=== PATIENT | male | born 1960 | race African-American/Black ===

== ENCOUNTER 2016-12-21 09:59 | Inpatient (IN) ==
[2016-12-21] MEDS ORDERED: ALBUTEROL/IPRATROPIUM 3 ML NEB RESP TX STA (10:32)
--- NOTE | 2016-12-21 10:57 | XRay Report ---
XR chest 2V Indication: Right-sided chest pain, cough Comparison: 25 April 2016 Findings: The heart and mediastinum are similar in size and configuration. The pulmonary vascularity is normal in caliber. There is increased right upper lung density with multiple air-fluid levels present within the right upper lobe bulla compared to previous study. The left upper lung increased density and scarring are similar to previous exam. No other lung infiltrates, effusions, pneumothorax or other abnormality is demonstrated. Impression: Increased right upper lung density with multiple air-fluid levels within the right upper lung bulla likely pneumonia/pulmonary abscess. PROCEDURE INTERPRETED AT [facility] DEPARTMENT OF RADIOLOGY Final Report Signed by: Dr. Noé Mortensen
[2016-12-21] MEDS ORDERED: PIPERACILLIN/TAZOBACTAM 3,375 MG in SODIUM CHLORIDE 0.9% 100 ML IV STA ×2 (11:29→11:55)
--- NOTE | 2016-12-21 11:41 | Emergency Department Note ---
IRossy Emily, am scribing for, and in the presence of, Beto Leigh MD 10:34. ILu Phillip K, MD, personally performed the services described in this documentation, ascribed by Anneliese Blair in my presence, and it is both accurate and complete 141 . Arrival - Arrival Chief Complaint: Chest Pain Stated Complaint: chest pain ED Nursing Triage Note: C/O HAVING PAIN ON THE RIGHT SIDE OF THE CHEST SINCE SAT., STATES THE PAIN IS WORSE COUGH AND INSPIRATION ., STATES ITS PAINFUL TO GET A DEEP BREATH IN., DENIES HAVING FEVER, DENIES HAVING NAUSEA., STATES HAD CHILLS ON SATURDAY AND SAT., DENIES PAIN RADIATING , CLEARING VOICE MORE THAN NORMAL., IN REMISSION FROM LUNG CANCER Mode of Arrival: Ambulatory Limitations: No Limitations Source: Patient - History of Present Illness HPI Narrative: Pt is a 56 y/o male who presents to ED with COPD of c/o sharp, right sided chest pain with DEL REAL that started on Saturday. Pt has associated sxs of pain with movement especially right arm raise, painful to deep inspiration, productive cough with clear sputum. Pt notes having subjective fever on Saturday with chills of hot and cold but resolved. Pt denies N/V or swelling in lower extremities. Pt has COPD and uses inhaler but no relief. He notes quitting smoking just a week ago. PMHx of Lung CA 5 yrs ago under supervision with Dr. Killian. He had CT chest last week with nml results. Onset (ago): day(s) Consistency: constant Severity: mild, moderate Severity scale (1-10): 4 Quality: sharp Allergies/Adverse Reactions: Allergies Allergy/AdvReac Type Severity Reaction Status Date / Time No Known Allergies Allergy Verified 12/21/16 10:06 Home Medications: Home Medications Medication Instructions Recorded Confirmed Type Albuterol Sulfate [Proair HFA] 2 puff INH DAILY PRN 07/28/15 12/21/16 History Aspirin [Ecotrin] 81 mg PO DAILY 04/25/16 12/21/16 History Ibuprofen [Ibuprofen] 800 mg Q6HR PRN 12/21/16 12/21/16 History Review of System - Review of System 12 point system: reviewed and no additional remarkable complaints except as stated - Review of System Constitutional: Present: chills (hot and cold with one day of fever), fever ( subjective once) Head/Ears/Nose/Throat: Absent: nasal drainage, sore throat Respiratory: Present: cough (productive but clear in color), respiratory distress Cardiovascular: Present: dyspnea on exertion. Absent: chest pain (chest wall pain on right side; worse with movement), orthopnea, syncope Gastrointestinal: Absent: abdominal pain, nausea, vomiting, diarrhea Musculoskeletal: Absent: arm pain, back pain, leg pain, neck pain Skin: Absent: rash Neurological: Absent: headache, confusion Psychiatric: Absent: anxiety Medical,Surgical,& Family Hx - Medical History Respiratory: History of: COPD, Lung Cancer (Left upper lobe surg) - Social History Smoking Status: Smoker, status unknown Frequency of Alcohol Use: Occasionally Type of Drug Use: None Functional capacity: independent ambulation Exam Vital Signs: Vital Signs Temperature 98.7 F 12/21/16 15:40 Pulse Rate 115 H 12/21/16 15:40 Respiratory Rate 20 12/21/16 15:40 Blood Pressure 116/73 12/21/16 15:40 O2 Sat by Pulse Oximetry 92 L 12/21/16 15:40 - General General appearance: alert, in no apparent distress - Head Head exam: Present: atraumatic, normocephalic - Eye Eye exam: Present: PERRL, EOMI - ENT ENT exam: Present: mucous membranes moist. Absent: mucous membranes dry - Chest Chest inspection: Present: symmetric chest wall rise, tenderness (reproducible, right anterior chest wall pain). Absent: rash - Respiratory Respiratory exam: Present: wheezes (expiratory). Absent: respiratory distress - Cardiovascular Cardiovascular exam: Present: tachycardia, normal heart sounds - Extremities Exam Extremities exam: Present: full ROM. Absent: tenderness, pedal edema, calf tenderness - Neurological Exam Neurological exam: Present: alert, oriented X3, CN II-XII intact. Absent: motor sensory deficit - Psychiatric Psychiatric exam: Present: normal affect, normal mood - Skin Skin exam: Present: warm, dry, intact, normal color. Absent: rash Results - Labs CBC & BMP: 12/21/16 11:41 12/21/16 11:41 Lab Results: I have reviewed the patients labs - EKG EKG results: interpreted by LUZ MARINA, sinus rhythm ([facility] nonspecific ST-T changes) - Diagnostic Findings Procedure: Chest x-ray: report reviewed by me (Increased right upper lung density with multiple air-fluid levels within right upper bulba likely PNA/ pulmonary abscess.) Disposition Clinical Impression: Right upper lobe pneumonia, Possible right pulmonary abscess Case discussed with: patient Disposition: Still a Patient Condition: Stable
[2016-12-21 11:54] LABS: Basophils % 0.2 % (0.0-0.8); Eosinophils # 0.6 10*3/uL (0.0-0.87); Eosinophils % 3.3 % (0.00-10.9); Hematocrit 46.2 VOL% (42.0-52.0); Hemoglobin 16.3 GM/DL (14.0-18.0); Immature Granulocytes % 0.6 %; Immature Granulocytes Absolute 0.11 #; Lymphocytes # 0.9 10*3/uL (1.4-4.0); Lymphocytes % 4.8 % (21.2-54.2); Mean Corpuscular HGB Conc 35.3 GM/DL (32-36); Mean Corpuscular Hemoglobin 34 PG (27-34); Mean Corpuscular Volume 97.1 FL (87-102); Mean Platelet Volume 12.4 FL (9.6-12.0); Monocytes # 1.6 10*3/uL (0.11-0.8); Monocytes % 8.2 % (1.7-12.7); Neutrophils # 16.1 10*3/uL (1.4-7.4); Neutrophils % 82.9 % (38.7-73.9); Platelet Count 101 T/CUMM (130-400); Red Blood Count 4.76 MC/CUMM (3.8-5.5); Red Cell Distribution Width 11.5 % (9.3-17.3); White Blood Count 19.4 T/CUMM (4-12)
[2016-12-21] MEDS ORDERED: PIPERACILLIN/TAZOBACTAM 3,375 MG VIAL IV ONE (12:06)
--- NOTE | 2016-12-21 12:14 | CT Report ---
CT chest pulmonary embolism Indication: Shortness of breath Comparison: 12 December 2016 Technique: Axial CT imaging of the chest is performed with intravenous contrast. Contrast dose is 80 cc of Omnipaque 350. Findings: No thrombus or other abnormality is identified in the pulmonary arteries or veins. The pulmonary vessel caliber is within normal limits. The heart, mediastinum and great vessels appear within normal limits. Fluid collection and chronic airspace density in the left upper lung with surgical changes are stable when compared to previous study. There is new airspace density and the right upper lobe with fluid levels present in the bulla that was not seen on previous exam. No effusion or pneumothorax is present. Impression: No evidence of pulmonary thromboembolism. Right upper lung airspace density likely pneumonia. Fluid within multiple bulla may indicate infection. This CT exam was performed using one or more the following dose reduction techniques: Automated exposure control, adjustment of the MA and/or KV according to patient size, or use of iterative reconstruction technique. PROCEDURE INTERPRETED AT [facility] DEPARTMENT OF RADIOLOGY Final Report Signed by: Dr. Noé Mortensen
[2016-12-21 12:21] LABS: Albumin 2.9 G/DL (3.4-5.0); Bilirubin,Total 0.9 MG/DL (0.2-1.0); Magnesium 2.3 MG/DL (1.8-2.4); Osmolality,Calculated 263.5 MOS/KG (273-304); Potassium 5.9 MMOL/L (3.5-5.1); Total Protein 8.2 G/DL (6.4-8.3)
[2016-12-21 12:47] LABS: Band Neutrophils 1 % (0-10); Eosinophils 4 % (0-10); Hypochromasia Slight; Lymphocytes 8 % (20-55); Platelet Estimate Decreased; Segmented Neutrophils 80 % (50-85); Total Cells Counted 100
[2016-12-21] MEDS ORDERED: traMADol 50 MG TABLET PO PRN (12:47)
[2016-12-21] MEDS ORDERED: TEMAZEPAM 7.5 MG CAPSULE PO PRN (12:47)
[2016-12-21] MEDS ORDERED: chlorproMAZINE INJ 50 MG in SODIUM CHLORIDE 0.9% 100 ML IV PRN (12:47)
[2016-12-21] MEDS ORDERED: LOPERAMIDE 2 MG CAPSULE PO PRN ×2 (12:47)
[2016-12-21] MEDS ORDERED: BENZTROPINE 2 MG/2 ML AMP IV PRN (12:47)
[2016-12-21] MEDS ORDERED: ALPRAZolam 0.25 MG TABLET PO PRN (12:47)
[2016-12-21] MEDS ORDERED: MAGNESIUM HYDROXIDE SUSP 30 ML UDCUP PO PRN (12:47)
[2016-12-21] MEDS ORDERED: MYLANTA/LIDO VISC 2:1 300 ML BOTTLE SWISH/SPIT PRN (12:47)
[2016-12-21] MEDS ORDERED: ONDANSETRON 4 MG/2 ML VIAL IV PRN (12:47)
[2016-12-21] MEDS ORDERED: chlorproMAZINE INJ 25 MG in SODIUM CHLORIDE 0.9% 100 ML IV PRN (12:47)
[2016-12-21] MEDS ORDERED: chlorproMAZINE 25 MG TABLET PO PRN (12:47)
[2016-12-21] MEDS ORDERED: MYLANTA/LIDO VISC 2:1 300 ML BOTTLE SWISH/SWAL PRN (12:47)
[2016-12-21] MEDS ORDERED: LACTULOSE 20 GM/30 ML UDCUP PO PRN (12:47)
[2016-12-21] MEDS ORDERED: ALUMINUM/MAGNES/SIMETH MAX STR 30 ML UDCUP PO PRN (12:47)
[2016-12-21] MEDS ORDERED: diphenhydrAMINE CAP 25 MG CAPSULE PO PRN (12:47)
[2016-12-21] MEDS ORDERED: PROMETHAZINE INJ 25 MG in SODIUM CHLORIDE 0.9% 50 ML IV PRN (12:47)
[2016-12-21] MEDS: guaiFENesin 200 MG/10 ML UDCUP PO PRN ×2 (13:28→18:03)
--- NOTE | 2016-12-21 14:01 | Pulmonology Consult Note ---
Assessment and Plan (1) Pneumonia Status: Acute Assessment and plan: The patient has been ill for 3 days with fever and sweats and pleurisy. He now has an extensive right upper lobe pneumonia. This is likely a bacterial pneumonia. He will be started on IV antibiotics. Current Visit: Yes Qualifiers: Laterality: right Lung location: upper lobe of lung (2) Emphysema of lung Status: Acute Assessment and plan: The patient does have bullous disease in his upper lobe and this makes for the cavitary appearance of the infiltrate. Current Visit: Yes (3) History of lung cancer Status: Acute Assessment and plan: The patient has scarring of the left upper lobe from previous cancer. He seems to be in remission. Current Visit: Yes History of Present Illness Chief complaint: Pneumonia History of present illness: Mr. Barton is a 56 year old black male that has a history of having left upper lobe lung cancer in the past. He had previous treatment including chemotherapy and radiation therapy and has been in remission for 4 years. He does have a history of having COPD and emphysema also. He states he was doing fairly well until 3 days ago. He had some chills and fever and then had a significant sweat. After that he started having right upper chest pleurisy. He has been coughing up some white sputum. He continues to feel short of breath and weak and came to the emergency room. He has been found to have extensive right upper lobe infiltrate. He is admitted for further treatment. He says he does use of inhalers as needed. He has been a lifelong smoker. Home Medications Medication Instructions Recorded Confirmed Type Albuterol Sulfate [Proair HFA] 2 puff INH DAILY PRN 07/28/15 12/21/16 History Aspirin [Ecotrin] 81 mg PO DAILY 04/25/16 12/21/16 History Ibuprofen [Ibuprofen] 800 mg Q6HR PRN 12/21/16 12/21/16 History Allergies Allergy/AdvReac Type Severity Reaction Status Date / Time No Known Allergies Allergy Verified 12/21/16 10:06 - Constitutional Constitutional: Present: chills, fatigue, fever(s). Absent: weight loss - EENT Eyes: Absent: loss of vision Ears: Absent: decreased hearing Nose, mouth and throat: Absent: dysphagia, headache(s), sinus pressure - Cardiovascular Cardiovascular: Present: chest pain at rest, dyspnea on exertion. Absent: orthopnea, palpitations, PND - Respiratory Respiratory: Present: cough, dyspnea, pain on inspiration, change in phlegm color. Absent: hemoptysis - Gastrointestinal Gastrointestinal: Absent: abdominal pain, change in bowel habits, dysphagia, nausea, vomiting - Genitourinary Genitourinary: Absent: difficulty urinating, dysuria, hematuria, urinary frequency - Musculoskeletal Musculoskeletal: Absent: arthralgias, muscle weakness - Neurological Neurological: Absent: abnormal speech, focal weakness, paresthesias Exam (Pulmonay) H&P - Constitutional Vitals: Period Temp Pulse Resp BP Sys/Peace Pulse Ox Last 24 Hr 98.5 F 106 20 117/75 97 General appearance: normal weight, no acute distress (The patient looks comfortable lying in bed.) - Head Head exam: Present: normal inspection, normocephalic - Eye Eye exam: Present: EOMI. Absent: scleral icterus Pupils: Present: CAMI - ENT ENT exam: Present: normal exam - Neck Neck exam: Absent: lymphadenopathy, thyromegaly - Respiratory Respiratory exam: Present: decreased breath sounds (He does have some crackles in the right upper lung field), rales, rhonchi - Cardiovascular Cardiovascular exam: Present: regular rate and rhythm. Absent: gallop, systolic murmur - GI/Abdominal GI/Abdominal exam: Present: normal bowel sounds, soft. Absent: organomegaly, tenderness - Extremities Exam Extremities exam: Absent: calf tenderness, edema - Back Exam Back exam: Present: normal inspection - Neurological Exam Neurological exam: Present: alert, oriented X3, CN II-XII intact. Absent: motor sensory deficit - Psychiatric Psychiatric exam: Present: normal affect - Skin Skin exam: Present: warm, dry Medical,Surgical,& Family Hx - Medical History Respiratory: History of: COPD, Lung Cancer (Left upper lobe surg) - Family History Family History: Reports;: Family Hypertension (brother and sister) - Social History Smoking Status: Former smoker Frequency of Alcohol Use: Occasionally Type of Drug Use: None Results - Labs CBC & BMP: 12/21/16 11:41 12/21/16 11:41 - Diagnostic Findings Procedure: Chest x-ray: image reviewed by me, report reviewed by me (Chest x- ray shows scarring and volume loss of the left upper lobe that is chronic. There is an extensive right upper lobe infiltrate now.), CT - chest: image reviewed by me, report reviewed by me (CT shows extensive bullous disease with a new right upper lobe infiltrate. The left upper lobe scarring and has significant volume loss.)
--- NOTE | 2016-12-21 14:44 | EKG Report ---
Stationary ECG Study [facility] Test Date: 12/21/2016 10:19:04 AM Pat Name: BRAIN LAUGHLIN Department: Room: 433 Gender: M Director Investor Relations: : 1960 Requested by: Beto Feng Order Number: [id number] Reading MD: YVAN NORTON Intervals [place] Rate: 87 P: 78 NV: 157 QRS: 31 QRSD: 103 T: 91 QT: 331 QTc: 376 Interpretive Statements SINUS RHYTHM POSSIBLE LEFT ATRIAL ENLARGEMENT POSSIBLE LEFT VENTRICULAR HYPERTROPHY POOR QUALITY BASELINE Electronically Signed On 12-21-16 19:54:01 CDT by YVAN NORTON [email or web address]
[2016-12-21] MEDS: SODIUM CHLORIDE 0.9% 1,000 ML IV SCH (15:11)
[2016-12-21] MEDS: MORPHINE 2 MG/1 ML SYRINGE IV PRN ×2 (15:32→18:04)
[2016-12-21] MEDS: LEVOFLOXACIN INJ 500 MG in PREMIX 1 EACH IV SCH (16:27)
[2016-12-21] MEDS: ALBUTEROL/IPRATROPIUM 3 ML NEB RESP TX SCH (19:41)
[2016-12-21] MEDS ORDERED: PIPERACILLIN/TAZOBACTAM 3,375 MG in SODIUM CHLORIDE 0.9% 100 ML IV SCH (20:00)
[2016-12-21] MEDS: PIPERACILLIN/TAZOBACTAM 3,375 MG in SODIUM CHLORIDE 0.9% 100 ML IV SCH (21:16)
[2016-12-22] MEDS: ALBUTEROL/IPRATROPIUM 3 ML NEB RESP TX SCH ×4 (01:41→19:49)
[2016-12-22] MEDS: SODIUM CHLORIDE 0.9% 1,000 ML IV SCH ×2 (03:14→10:55)
[2016-12-22 03:54] LABS: Apearance,Urine CLEAR (Clear); Bilirubin,Urine Negative (Negative); Blood, Urine Small mg/dL (Negative); Glucose,Urine (UA) Negative (Negative); Ketones,Urine Negative (Negative); Nitrite,Urine Negative (Negative); Protein,Urine Negative; Urine Color Yellow (Yellow); Urine Specific Gravity 1.006 (1.001-1.035); Urine Urobilinogen < 2.0 EU/DL (0.2-1.0); WBC,Urine 1 /HPF (0-6)
[2016-12-22] MEDS: PIPERACILLIN/TAZOBACTAM 3,375 MG in SODIUM CHLORIDE 0.9% 100 ML IV SCH ×3 (03:55→20:37)
--- NOTE | 2016-12-22 07:08 | Oncology History&Physical ---
Assessment and Plan - Time spent with patient Time spent with patient: Greater than 30 minutes (1) Right upper lobe pneumonia Status: Acute Assessment and plan: We will continue with his current antibiotics. He has seemed to improve well overnight. I told him that he will likely be over 2-3 days. I am unsure why he is on the oncology service but we will continue this for now. Current Visit: Yes (2) History of lung cancer Status: Acute Current Visit: Yes History of Present Illness History of present illness: Mr. Barton is a 56 year old male with a history of left-sided lung cancer that completed treatment 4-5 years ago and has been followed with observation by Dr. Killian every 6 months in clinic. He presented to the emergency room yesterday complaining of cough, fatigue, and increased dark sputum production. He was found to have a right upper lobe pneumonia. He was admitted to the oncology service to manage this. Pulmonary is seeing him. He is on Levaquin and Zosyn at this time. He states he is feeling much better this morning. He denies any fever. Home Medications Medication Instructions Recorded Confirmed Type Albuterol Sulfate [Proair HFA] 2 puff INH DAILY PRN 07/28/15 12/21/16 History Aspirin [Ecotrin] 81 mg PO DAILY 04/25/16 12/21/16 History Ibuprofen [Ibuprofen] 800 mg Q6HR PRN 12/21/16 12/21/16 History Allergies Allergy/AdvReac Type Severity Reaction Status Date / Time No Known Allergies Allergy Verified 12/21/16 10:06 Medical,Surgical,& Family Hx - Medical History Respiratory: History of: COPD, Lung Cancer (Left upper lobe surg) - Family History Family History: Reports;: Family Hypertension (brother and sister) - Social History Smoking Status: Smoker, status unknown Frequency of Alcohol Use: Occasionally Type of Drug Use: None 12 point system: reviewed and no additional remarkable complaints except as stated - Constitutional Constitutional: Present: fatigue. Absent: chills, fever(s) - Respiratory Respiratory: Present: cough. Absent: dyspnea, hemoptysis, wheezing Exam - Constitutional Vitals: Period Temp Pulse Resp BP Sys/Peace Pulse Ox Last 24 Hr 98.2 F-98.7 F 98-122 16-20 116-120/72-75 91-99 General appearance: normal weight, no acute distress - Head Head Exam: Present: normocephalic, atraumatic - Eye Eye Exam: Present: EOMI Pupils: Present: PERRL - ENT ENT exam: Present: normal exam, normal oropharynx - Neck Neck exam: Absent: lymphadenopathy, thyromegaly - Respiratory Respiratory exam: Present: CTAB. Absent: decreased breath sounds, wheezes - Cardiovascular Cardiovascular exam: Present: RRR. Absent: irregular rhythm, JVD - GI/Abdominal GI/Abdominal exam: Present: soft. Absent: ascites, distended, firm, mass - Neurological Exam Neurological exam: Present: alert, oriented X3 - Psychiatric Psychiatric exam: Present: normal affect, normal mood - Skin Skin exam: Present: warm, dry Results - Labs CBC & BMP: 12/21/16 11:41 12/21/16 11:41 Lab Results: I have reviewed the past 24 hour labs
--- NOTE | 2016-12-22 09:18 | Pulmonology Progress Note ---
Pulmonary - PN: Subj Interval history: The patient is a 56-year-old black man that has had a history of left upper lobe lung cancer and COPD. He comes in with a few days of pleurisy coughing and congestion and has an extensive right upper lobe community-acquired pneumonia. His cultures are negative so far. He had a temp of around 100 last night. He says he feels better with less pleurisy. He still has a lot of cough but no increased shortness of breath. Overall he appears to be stable. Exam (Progress Note) - Constitutional Vitals: Period Temp Pulse Resp BP Sys/Peace Pulse Ox Last 24 Hr 98.2 F-100.0 F 95-122 16-20 116-125/68-75 91-99 Exam: General appearance: normal weight, no acute distress (The patient is walking around and looks comfortable.) - Head Head exam: Present: normal inspection, normocephalic - Eye Eye exam: Present: EOMI. Absent: scleral icterus Pupils: Present: CAMI - ENT ENT exam: Present: normal exam - Neck Neck exam: Absent: lymphadenopathy, thyromegaly - Respiratory Respiratory exam: Present: He has fairly good breath sounds bilaterally and still has some mild rhonchi in the right upper lobe. Otherwise he is moving air fairly well. - Cardiovascular Cardiovascular exam: Present: regular rate and rhythm. Absent: gallop, systolic murmur - GI/Abdominal GI/Abdominal exam: Present: normal bowel sounds, soft. Absent: organomegaly, tenderness - Extremities Exam Extremities exam: Absent: calf tenderness, edema, he has no signs of phlebitis. - Back Exam Back exam: Present: normal inspection - Neurological Exam Neurological exam: Present: alert, oriented X3, CN II-XII intact. Absent: motor sensory deficit - Psychiatric Psychiatric exam: Present: normal affect - Skin Skin exam: Present: warm, dry Results - Labs CBC & BMP: 12/21/16 11:41 12/21/16 11:41 Assessment and Plan (1) Pneumonia Status: Acute Assessment and plan: The patient has been ill for 3 days with fever and sweats and pleurisy. He now has an extensive right upper lobe pneumonia. This is likely a bacterial pneumonia. He will be started on IV antibiotics. He is tolerating everything okay so far Current Visit: Yes Qualifiers: Laterality: right Lung location: upper lobe of lung (2) Emphysema of lung Status: Acute Assessment and plan: The patient does have bullous disease in his upper lobe and this makes for the cavitary appearance of the infiltrate. His breathing seems to be stable at present. Current Visit: Yes (3) History of lung cancer Status: Acute Assessment and plan: The patient has scarring of the left upper lobe from previous cancer. He seems to be in remission. Current Visit: Yes
[2016-12-22] MEDS: LEVOFLOXACIN INJ 500 MG in PREMIX 1 EACH IV SCH (15:38)
[2016-12-22] MEDS: guaiFENesin/CODEINE 5 ML LIQUID PO PRN ×2 (15:50→20:32)
[2016-12-22] MEDS: ACETAMINOPHEN 325 MG TABLET PO PRN (16:08)
[2016-12-23] MEDS: ALBUTEROL/IPRATROPIUM 3 ML NEB RESP TX SCH ×4 (00:30→19:33)
[2016-12-23 03:46] LABS: Calcium 8.4 MG/DL (8.5-10.1); Magnesium 1.8 MG/DL (1.8-2.4); Osmolality,Calculated 273.7 MOS/KG (273-304); Potassium 4.3 MMOL/L (3.5-5.1)
[2016-12-23] MEDS: PIPERACILLIN/TAZOBACTAM 3,375 MG in SODIUM CHLORIDE 0.9% 100 ML IV SCH ×3 (03:51→21:11)
[2016-12-23] MEDS: SODIUM CHLORIDE 0.9% 1,000 ML IV SCH ×2 (03:56→21:27)
[2016-12-23 03:57] LABS: Basophils % 0.1 % (0.0-0.8); Eosinophils # 0.7 10*3/uL (0.0-0.87); Eosinophils % 3.9 % (0.00-10.9); Hematocrit 38.4 VOL% (42.0-52.0); Hemoglobin 13.7 GM/DL (14.0-18.0); Immature Granulocytes % 1.8 %; Immature Granulocytes Absolute 0.32 #; Lymphocytes # 1.1 10*3/uL (1.4-4.0); Lymphocytes % 6.2 % (21.2-54.2); Mean Corpuscular HGB Conc 35.7 GM/DL (32-36); Mean Corpuscular Hemoglobin 34 PG (27-34); Mean Corpuscular Volume 95.8 FL (87-102); Mean Platelet Volume 11.9 FL (9.6-12.0); Monocytes % 11.4 % (1.7-12.7); Neutrophils # 13.6 10*3/uL (1.4-7.4); Neutrophils % 76.6 % (38.7-73.9); Platelet Count 129 T/CUMM (130-400); Red Blood Count 4.01 MC/CUMM (3.8-5.5); Red Cell Distribution Width 11.7 % (9.3-17.3); White Blood Count 17.8 T/CUMM (4-12)
[2016-12-23] MEDS: ACETAMINOPHEN 325 MG TABLET PO PRN (04:40)
--- NOTE | 2016-12-23 08:56 | Pulmonology Progress Note ---
Pulmonary - PN: Subj Interval history: The patient is a 56-year-old black man that has had a history of left upper lobe lung cancer and COPD. He comes in with a few days of pleurisy coughing and congestion and has an extensive right upper lobe community-acquired pneumonia. Patient had a temperature to 102 last night but he says he is feeling better today. He is having less pleurisy and is not short of breath. He has not been able to cough up much sputum. He says he is tolerating his antibiotics okay. His cultures are still negative so far. Exam (Progress Note) - Constitutional Vitals: Period Temp Pulse Resp BP Sys/Peace Pulse Ox Last 24 Hr 97.3 F-103.2 F 89-110 16-20 116-131/66-83 90-100 Exam: General appearance: normal weight, no acute distress (The patient is walking around and looks comfortable. He is not having any respiratory distress.) - Head Head exam: Present: normal inspection, normocephalic - Eye Eye exam: Present: EOMI. Absent: scleral icterus Pupils: Present: CAMI - ENT ENT exam: Present: normal exam - Neck Neck exam: Absent: lymphadenopathy, thyromegaly - Respiratory Respiratory exam: Present: He has fairly good breath sounds bilaterally and is not really wheezing any. He does have some crackles in his right upper lung field. - Cardiovascular Cardiovascular exam: Present: regular rate and rhythm. Absent: gallop, systolic murmur - GI/Abdominal GI/Abdominal exam: Present: normal bowel sounds, soft. Absent: organomegaly, tenderness - Extremities Exam Extremities exam: Absent: calf tenderness, edema, he has no signs of phlebitis. - Back Exam Back exam: Present: normal inspection - Neurological Exam Neurological exam: Present: alert, oriented X3, CN II-XII intact. Absent: motor sensory deficit - Psychiatric Psychiatric exam: Present: normal affect - Skin Skin exam: Present: warm, dry Results - Labs CBC & BMP: 12/23/16 02:18 12/23/16 02:18 Assessment and Plan (1) Pneumonia Status: Acute Assessment and plan: The patient has been ill for 3 days with fever and sweats and pleurisy. He now has an extensive right upper lobe pneumonia. This is likely a bacterial pneumonia. He will be started on IV antibiotics. He still is having some fever but clinically he seems better. Will check a chest x-ray tomorrow. Current Visit: Yes Qualifiers: Laterality: right Lung location: upper lobe of lung (2) Emphysema of lung Status: Acute Assessment and plan: The patient does have bullous disease in his upper lobe and this makes for the cavitary appearance of the infiltrate. His breathing seems to be stable at present. Current Visit: Yes (3) History of lung cancer Status: Acute Assessment and plan: The patient has scarring of the left upper lobe from previous cancer. He seems to be in remission. Current Visit: Yes
[2016-12-23] MEDS: guaiFENesin/CODEINE 5 ML LIQUID PO PRN ×3 (09:01→21:10)
--- NOTE | 2016-12-23 09:48 | Oncology Progress Note ---
Assessment and Plan (1) History of lung cancer Status: Acute Current Visit: Yes (2) Pneumonia Status: Acute Current Visit: Yes Qualifiers: Laterality: right Lung location: upper lobe of lung Oncology Subjective PN Interval history: Mr. Mccarthy is to be doing better today. He remained febrile throughout the day yesterday and early this morning but clinically he is improving. He is on broad -spectrum antimicrobial agents for likely right upper lobe bacterial pneumonia. We will not make any changes to his antibiotics at this time. Pulmonary is in agreement with this. I encouraged him to get out of bed today and ambulate. Anticipate he will at least need to be in the hospital for another day or 2. Exam - Constitutional Vitals: Period Temp Pulse Resp BP Sys/Peace Pulse Ox Last 24 Hr 97.3 F-103.2 F 89-110 16-20 116-131/66-83 90-100 General appearance: normal weight, no acute distress - Head Head Exam: Present: normocephalic, atraumatic - Eye Eye Exam: Present: EOMI Pupils: Present: PERRL - Neck Neck exam: Absent: lymphadenopathy, thyromegaly - Respiratory Respiratory exam: Present: other (Coarse breath sounds bilaterally). Absent: wheezes - Cardiovascular Cardiovascular exam: Present: tachycardia. Absent: irregular rhythm, JVD - GI/Abdominal GI/Abdominal exam: Present: soft. Absent: ascites, distended, mass - Neurological Exam Neurological exam: Present: alert, oriented X3 - Psychiatric Psychiatric exam: Present: normal affect, normal mood - Skin Skin exam: Present: warm, dry Results - Labs CBC & BMP: 12/23/16 02:18 12/23/16 02:18 Lab Results: I have reviewed the past 24 hour labs
[2016-12-23] MEDS: LEVOFLOXACIN INJ 500 MG in PREMIX 1 EACH IV SCH (15:42)
[2016-12-24] MEDS: ALBUTEROL/IPRATROPIUM 3 ML NEB RESP TX SCH ×4 (01:23→19:25)
[2016-12-24] MEDS: PIPERACILLIN/TAZOBACTAM 3,375 MG in SODIUM CHLORIDE 0.9% 100 ML IV SCH ×3 (04:42→20:17)
--- NOTE | 2016-12-24 08:41 | XRay Report ---
XR chest 2V Date: 12/24/2016 4:00 AM History: Pneumonia Comparison: 12/21/2016 Technique: PA and lateral chest Findings: The heart remains small and compressed by the over expanded lungs. Extensive cystic/cavitary pathology in the upper lobes, especially the right. Additional progressive parenchymal findings in the right middle lower lung zone and at the left lung base. Upward retraction of the myranda with no acute osseous findings. Impression: Bullous emphysema with persistent extensive cystic/cavitary pathology in the upper lobes, especially the right. Additional progressive infiltration in the right middle lower lung zone and at the left lung base. PROCEDURE INTERPRETED AT [facility] DEPARTMENT OF RADIOLOGY Final Report Signed by: Dr. Sintia Houser
--- NOTE | 2016-12-24 08:51 | Oncology Progress Note ---
Oncology Subjective PN Interval history: Patient with history of lung cancer, bullous emphysema, and right upper lobe pneumonia. He is improved after 72 hours of hospitalization. He is receiving Zosyn and Levaquin. He still has some cough which is nonproductive at this time. He did report some green sputum initially. His temperature curve seems to be down by his report. Blood cultures are negative. Breath sounds are notable for decreased airflow bilaterally without wheezes or crackles at the present time. Chest x-ray images reviewed by me with chronic scarring in the left upper lobe and extensive bullae in the right lung with an air-fluid level present. I do not think there is anything we should do from a percutaneous or interventional standpoint but continue aggressive antimicrobials. I discussed with the patient that he will likely be hospitalized for the majority of this week. Exam - Constitutional Vitals: Period Temp Pulse Resp BP Sys/Peace Pulse Ox Last 24 Hr 98.4 F-100.8 F 86-120 16-20 117-126/64-71 90-100 Results - Labs CBC & BMP: 12/23/16 02:18 12/23/16 02:18
--- NOTE | 2016-12-24 12:00 | Pulmonology Progress Note ---
Pulmonary - PN: Subj Interval history: The patient is a 56-year-old black man that has had a history of left upper lobe lung cancer and COPD. He comes in with a few days of pleurisy coughing and congestion and has an extensive right upper lobe community-acquired pneumonia. His fever has improving and his cough is better. He says he is not coughing up much secretions. He feels like his breathing may be a little better. He still has extensive right upper lobe consolidation. He has bullous disease and may have one area of cavitation. We will continue antibiotics for bacterial pneumonia. Exam (Progress Note) - Constitutional Vitals: Period Temp Pulse Resp BP Sys/Peace Pulse Ox Last 24 Hr 98.4 F-100.8 F 86-120 16-20 117-129/64-78 90-100 Exam: General appearance: normal weight, no acute distress (The patient is walking around and looks comfortable. He is not having any respiratory distress. He has a low-grade fever.) - Head Head exam: Present: normal inspection, normocephalic - Eye Eye exam: Present: EOMI. Absent: scleral icterus Pupils: Present: CAMI - ENT ENT exam: Present: normal exam - Neck Neck exam: Absent: lymphadenopathy, thyromegaly - Respiratory Respiratory exam: Present: He has fairly good breath sounds bilaterally and is not really wheezing any. He does have some crackles in his right upper lung field. - Cardiovascular Cardiovascular exam: Present: regular rate and rhythm. Absent: gallop, systolic murmur - GI/Abdominal GI/Abdominal exam: Present: normal bowel sounds, soft. Absent: organomegaly, tenderness - Extremities Exam Extremities exam: Absent: calf tenderness, edema, he has no signs of phlebitis. - Back Exam Back exam: Present: normal inspection - Neurological Exam Neurological exam: Present: alert, oriented X3, CN II-XII intact. Absent: motor sensory deficit - Psychiatric Psychiatric exam: Present: normal affect - Skin Skin exam: Present: warm, dry Results - Labs CBC & BMP: 12/23/16 02:18 12/23/16 02:18 - Diagnostic Findings Procedure: Chest x-ray: image reviewed by me, report reviewed by me (Chest x- ray still shows extensive right upper lobe consolidation with bullous lung disease.) Assessment and Plan (1) Pneumonia Status: Acute Assessment and plan: The patient has been ill for 3 days with fever and sweats and pleurisy. He now has an extensive right upper lobe pneumonia. This is likely a bacterial pneumonia. He will be started on IV antibiotics. He still is having some fever but clinically he seems better. Overall he looks reasonably stable. His chest x-ray has not improved that much yet. Current Visit: Yes Qualifiers: Laterality: right Lung location: upper lobe of lung (2) Emphysema of lung Status: Acute Assessment and plan: The patient does have bullous disease in his upper lobe and this makes for the cavitary appearance of the infiltrate. He may have one cavitary area. He will probably need penicillin for a while. Current Visit: Yes (3) History of lung cancer Status: Acute Assessment and plan: The patient has scarring of the left upper lobe from previous cancer. He seems to be in remission. Current Visit: Yes
[2016-12-24] MEDS: LEVOFLOXACIN INJ 500 MG in PREMIX 1 EACH IV SCH (17:23)
[2016-12-24] MEDS: guaiFENesin/CODEINE 5 ML LIQUID PO PRN (17:27)
[2016-12-25] MEDS: ALBUTEROL/IPRATROPIUM 3 ML NEB RESP TX SCH ×3 (00:28→19:25)
[2016-12-25] MEDS: PIPERACILLIN/TAZOBACTAM 3,375 MG in SODIUM CHLORIDE 0.9% 100 ML IV SCH ×3 (03:59→20:08)
--- NOTE | 2016-12-25 08:37 | Oncology Progress Note ---
Oncology Subjective PN Interval history: Patient is ambulating and eating well. He is on room air and is breathing comfortable. Bilateral pulmonary congestion is noted on posterior examination right greater than left. No wheezes are heard. Still with fever to 101.3 yesterday afternoon. He says his cough is improved. I have ordered a sputum culture as this may help guide oral antibiotic selection. I see little else to do other than continue aggressive antibiotics for what will likely be an extended course. Exam - Constitutional Vitals: Period Temp Pulse Resp BP Sys/Peace Pulse Ox Last 24 Hr 97.3 F-101.3 F 84-107 16-20 115-124/58-75 91-99 Results - Labs CBC & BMP: 12/23/16 02:18 12/23/16 02:18
--- NOTE | 2016-12-25 08:38 | Pulmonology Progress Note ---
Pulmonary - PN: Subj Interval history: The patient is a 56-year-old black man that has had a history of left upper lobe lung cancer and COPD. He comes in with a few days of pleurisy coughing and congestion and has an extensive right upper lobe community-acquired pneumonia. His fever has improving and his cough is better. He says he is not coughing up much secretions. He feels like his breathing may be a little better. He still has extensive right upper lobe consolidation. He has bullous disease and may have one area of cavitation. He says he had a fairly good night and his breathing is a little better. He still has a temperature up to 101. His appetite is fair. He does not have any sputum production. So far there is nothing on culture. Exam (Progress Note) - Constitutional Vitals: Period Temp Pulse Resp BP Sys/Peace Pulse Ox Last 24 Hr 97.3 F-101.3 F 84-107 16-20 115-124/58-75 91-99 Exam: General appearance: normal weight, no acute distress (The patient is walking around and looks comfortable. He is not having any respiratory distress. He has a low-grade fever. He looks like he feels better.) - Head Head exam: Present: normal inspection, normocephalic - Eye Eye exam: Present: EOMI. Absent: scleral icterus Pupils: Present: CAMI - ENT ENT exam: Present: normal exam - Neck Neck exam: Absent: lymphadenopathy, thyromegaly - Respiratory Respiratory exam: Present: He has fairly good breath sounds bilaterally and is not really wheezing any. He does have some crackles in his right upper lung field. - Cardiovascular Cardiovascular exam: Present: regular rate and rhythm. Absent: gallop, systolic murmur - GI/Abdominal GI/Abdominal exam: Present: normal bowel sounds, soft. Absent: organomegaly, tenderness - Extremities Exam Extremities exam: Absent: calf tenderness, edema, he has no signs of phlebitis. - Back Exam Back exam: Present: normal inspection - Neurological Exam Neurological exam: Present: alert, oriented X3, CN II-XII intact. Absent: motor sensory deficit - Psychiatric Psychiatric exam: Present: normal affect - Skin Skin exam: Present: warm, dry Results - Labs CBC & BMP: 12/23/16 02:18 12/23/16 02:18 Assessment and Plan (1) Pneumonia Status: Acute Assessment and plan: The patient has been ill for 3 days with fever and sweats and pleurisy. He now has an extensive right upper lobe pneumonia. This is likely a bacterial pneumonia. He will be started on IV antibiotics. He still is having some fever but clinically he seems better. He may need a bronchoscope at some point but he does seem to be clinically better. He will need antibiotics for several weeks. Current Visit: Yes Qualifiers: Laterality: right Lung location: upper lobe of lung (2) Emphysema of lung Status: Acute Assessment and plan: The patient does have bullous disease in his upper lobe and this makes for the cavitary appearance of the infiltrate. He may have one cavitary area. He will probably need penicillin for a while. Current Visit: Yes (3) History of lung cancer Status: Acute Assessment and plan: The patient has scarring of the left upper lobe from previous cancer. He seems to be in remission. Current Visit: Yes
[2016-12-25] MEDS ORDERED: ALBUTEROL/IPRATROPIUM 3 ML NEB RESP TX SCH (09:00)
[2016-12-25] MEDS: ASPIRIN EC 81 MG TABLET PO SCH (09:39)
[2016-12-25] MEDS: HYDROcodone/HOMATROPINE 5 ML UDCUP PO PRN ×2 (15:19→20:50)
[2016-12-25] MEDS: LEVOFLOXACIN INJ 500 MG in PREMIX 1 EACH IV SCH (16:40)
[2016-12-25] MEDS: IBUPROFEN 800 MG TABLET PO PRN (17:04)
[2016-12-26] MEDS: PIPERACILLIN/TAZOBACTAM 3,375 MG in SODIUM CHLORIDE 0.9% 100 ML IV SCH ×3 (03:50→20:43)
[2016-12-26 05:52] LABS: Basophils # 0.1 10*3/uL (0.0-0.2); Basophils % 0.5 % (0.0-0.8); Eosinophils # 1.2 10*3/uL (0.0-0.87); Eosinophils % 13.1 % (0.00-10.9); Hematocrit 38.6 VOL% (42.0-52.0); Hemoglobin 13.6 GM/DL (14.0-18.0); Immature Granulocytes % 1.2 %; Immature Granulocytes Absolute 0.11 #; Lymphocytes # 1.1 10*3/uL (1.4-4.0); Lymphocytes % 11.4 % (21.2-54.2); Mean Corpuscular HGB Conc 35.2 GM/DL (32-36); Mean Corpuscular Hemoglobin 34 PG (27-34); Mean Platelet Volume 11.6 FL (9.6-12.0); Monocytes # 1.1 10*3/uL (0.11-0.8); Monocytes % 11.4 % (1.7-12.7); Neutrophils # 5.9 10*3/uL (1.4-7.4); Neutrophils % 62.4 % (38.7-73.9); Platelet Count 230 T/CUMM (130-400); Red Blood Count 4.02 MC/CUMM (3.8-5.5); Red Cell Distribution Width 11.8 % (9.3-17.3); White Blood Count 9.4 T/CUMM (4-12)
[2016-12-26 06:25] LABS: Hypochromasia Slight; Platelet Estimate Normal
[2016-12-26 06:33] LABS: Albumin 2.4 G/DL (3.4-5.0); Bilirubin,Total 0.6 MG/DL (0.2-1.0); Calcium 8.5 MG/DL (8.5-10.1); Magnesium 2.5 MG/DL (1.8-2.4); Osmolality,Calculated 277.4 MOS/KG (273-304); Potassium 4.8 MMOL/L (3.5-5.1); Total Protein 6.7 G/DL (6.4-8.3)
[2016-12-26] MEDS: ALBUTEROL/IPRATROPIUM 3 ML NEB RESP TX SCH ×2 (07:34→19:57)
--- NOTE | 2016-12-26 07:54 | XRay Report ---
XR chest 2V Indication: Right upper lobe pneumonia Comparison: Chest x-ray dated December 24, 2016 Technique: Frontal and lateral views of the chest Findings: Cardiomediastinal silhouette is stable in configuration. Minimally improved right upper lobe consolidation. Significant opacification remains within the bilateral lung apices with focal pleural fluid suggested over the left lung apex.. Air-fluid level again noted within cysts/cavitation within the right lung apex. Osseous and surrounding soft tissue structures appear grossly unchanged. IMPRESSION: As above. PROCEDURE INTERPRETED AT [facility] DEPARTMENT OF RADIOLOGY Final Report Signed by: Dr Jet Hernandez
--- NOTE | 2016-12-26 08:44 | Pulmonology Progress Note ---
Pulmonary - PN: Subj Interval history: The patient is a 56-year-old black man that has had a history of left upper lobe lung cancer and COPD. He comes in with a few days of pleurisy coughing and congestion and has an extensive right upper lobe community-acquired pneumonia. His fever has improving and his cough is better. He says he is not coughing up much secretions. He feels like his breathing may be a little better. He still has extensive right upper lobe consolidation. He has bullous disease and may have one area of cavitation. He says he had a good night and did not have fever last night. He is not coughing now and his chest congestion is better. He says he is breathing better not having any chest pain. His chest x-ray is improving now. His white count is down to 9400. Overall he looks much better. Exam (Progress Note) - Constitutional Vitals: Period Temp Pulse Resp BP Sys/Peace Pulse Ox Last 24 Hr 97.3 F-98.8 F 71-114 18-20 105-118/57-66 93-99 Exam: General appearance: normal weight, no acute distress (The patient is walking around and looks comfortable. He is not having any respiratory distress. He feels better today.) - Head Head exam: Present: normal inspection, normocephalic - Eye Eye exam: Present: EOMI. Absent: scleral icterus Pupils: Present: CAMI - ENT ENT exam: Present: normal exam - Neck Neck exam: Absent: lymphadenopathy, thyromegaly - Respiratory Respiratory exam: Present: He has fairly good breath sounds bilaterally and is not really wheezing any. His lungs sound better. - Cardiovascular Cardiovascular exam: Present: regular rate and rhythm. Absent: gallop, systolic murmur - GI/Abdominal GI/Abdominal exam: Present: normal bowel sounds, soft. Absent: organomegaly, tenderness - Extremities Exam Extremities exam: Absent: calf tenderness, edema, he has no signs of phlebitis. - Back Exam Back exam: Present: normal inspection - Neurological Exam Neurological exam: Present: alert, oriented X3, CN II-XII intact. Absent: motor sensory deficit - Psychiatric Psychiatric exam: Present: normal affect - Skin Skin exam: Present: warm, dry Results - Labs CBC & BMP: 12/26/16 04:23 12/26/16 04:23 - Diagnostic Findings Procedure: Chest x-ray: image reviewed by me, report reviewed by me (Chest x- ray shows right upper lobe infiltrate is improving.) Assessment and Plan (1) Pneumonia Status: Acute Assessment and plan: The patient has a right upper lobe pneumonia and is improving now. His white count is down and is not having any fever now. He feels like his breathing is better. His chest x-ray is improving. He continues to do well now. Current Visit: Yes Qualifiers: Laterality: right Lung location: upper lobe of lung (2) Emphysema of lung Status: Acute Assessment and plan: The patient does have bullous disease in his upper lobe and this makes for the cavitary appearance of the infiltrate. He may have one cavitary area. He continues to improve now and will continue with antibiotics. Current Visit: Yes (3) History of lung cancer Status: Acute Assessment and plan: The patient has scarring of the left upper lobe from previous cancer. He seems to be in remission. Current Visit: Yes
[2016-12-26] MEDS: ASPIRIN EC 81 MG TABLET PO SCH (08:53)
--- NOTE | 2016-12-26 08:54 | Oncology Progress Note ---
Oncology Subjective PN Interval history: Patient with previous left sided lung cancer 4-5 years ago, severe bullous emphysema, and right lung pneumonia. Appears nontoxic. Continues on room air. I will consider for discharge tomorrow. His labs are reviewed with normal white blood cell count. He does show evidence of decreased serum albumin. Exam - Constitutional Vitals: Period Temp Pulse Resp BP Sys/Peace Pulse Ox Last 24 Hr 97.3 F-98.8 F 71-114 18-20 105-118/57-66 93-99 Results - Labs CBC & BMP: 12/26/16 04:23 12/26/16 04:23
[2016-12-26] MEDS: guaiFENesin/CODEINE 5 ML LIQUID PO PRN (14:36)
[2016-12-26] MEDS: HYDROcodone/HOMATROPINE 5 ML UDCUP PO PRN (14:42)
[2016-12-26] MEDS: LEVOFLOXACIN INJ 500 MG in PREMIX 1 EACH IV SCH (17:22)
[2016-12-26] MEDS: IBUPROFEN 800 MG TABLET PO PRN (20:42)
[2016-12-27] MEDS: PIPERACILLIN/TAZOBACTAM 3,375 MG in SODIUM CHLORIDE 0.9% 100 ML IV SCH (04:04)
[2016-12-27] MEDS: ASPIRIN EC 81 MG TABLET PO SCH (08:49)
--- NOTE | 2016-12-27 08:49 | Pulmonology Progress Note ---
Pulmonary - PN: Subj Interval history: The patient is a 56-year-old black man that has had a history of left upper lobe lung cancer and COPD. He comes in with a few days of pleurisy coughing and congestion and has an extensive right upper lobe community-acquired pneumonia. His fever has improved and his cough is better. He says he is not coughing up much secretions. He feels like his breathing may be a little better. He still has extensive right upper lobe consolidation. He has bullous disease and may have one area of cavitation. He said he had a fairly good night although he had a temp of 100.2. His cough is better and his breathing is better. His chest x-ray yesterday was much improved. Overall he is doing fairly well. He has had a considerable right upper lobe pneumonia but is improving. He can probably go home soon on oral antibiotics. Exam (Progress Note) - Constitutional Vitals: Period Temp Pulse Resp BP Sys/Peace Pulse Ox Last 24 Hr 96.6 F-100.2 F 67-87 20-20 93-134/40-73 93-97 Exam: General appearance: normal weight, no acute distress (The patient is walking around and looks comfortable. Overall he is better.) - Head Head exam: Present: normal inspection, normocephalic - Eye Eye exam: Present: EOMI. Absent: scleral icterus Pupils: Present: CAMI - ENT ENT exam: Present: normal exam - Neck Neck exam: Absent: lymphadenopathy, thyromegaly - Respiratory Respiratory exam: Present: He has fairly good breath sounds bilaterally and is not really wheezing any. His lungs sound better. He does not have any significant rales now. - Cardiovascular Cardiovascular exam: Present: regular rate and rhythm. Absent: gallop, systolic murmur - GI/Abdominal GI/Abdominal exam: Present: normal bowel sounds, soft. Absent: organomegaly, tenderness - Extremities Exam Extremities exam: Absent: calf tenderness, edema, he has no signs of phlebitis. - Back Exam Back exam: Present: normal inspection - Neurological Exam Neurological exam: Present: alert, oriented X3, CN II-XII intact. Absent: motor sensory deficit - Psychiatric Psychiatric exam: Present: normal affect - Skin Skin exam: Present: warm, dry Results - Labs CBC & BMP: 12/26/16 04:23 12/26/16 04:23 Assessment and Plan (1) Pneumonia Status: Acute Assessment and plan: The patient has a right upper lobe pneumonia and is improving now. His white count is down and his maximum temperature was 100.2. His breathing is doing well and overall he feels better. He can probably go on oral antibiotics soon. Current Visit: Yes Qualifiers: Laterality: right Lung location: upper lobe of lung (2) Emphysema of lung Status: Acute Assessment and plan: The patient does have bullous disease in his upper lobe and this makes for the cavitary appearance of the infiltrate. He may have one cavitary area. He continues to improve now and will continue with antibiotics. His chest x-ray overall is much better and infiltrate is clearing. Current Visit: Yes (3) History of lung cancer Status: Acute Assessment and plan: The patient has scarring of the left upper lobe from previous cancer. He seems to be in remission. Current Visit: Yes
--- NOTE | 2016-12-27 08:55 | Discharge Summary ---
Hospital Course - Hospital Course Hospital Course: Patient was admitted with shortness of breath and fever. Found to have a significant consolidation of the right upper lung with an air-fluid level present. He has remained nontoxic during his hospital stay and has not required additional supplemental oxygen. He has had fever on several occasions with negative blood cultures. He has not been able to provide a sputum culture over the last 48 hours. He is ablating in the hallways without distress. His routine labs are acceptable. He is tolerating oral intake. He has received Zosyn and Levaquin while hospitalized and will be discharged on 2 weeks of oral Levaquin 750 mg daily. I am arranging for a 7 day follow-up with me at my office with labs and repeat chest x-ray. No evidence of cancer recurrence at this time. Strongly encouraged to remain tobacco free after discharge. Specialty Discharge - Follow Up or Referrals Follow up with: Giuseppe Killian MD [Physician] - Discharge Plan - Discharge Medications No Action Albuterol Sulfate [Proair HFA] 2 puff INH DAILY PRN PRN Reason: Shortness Of Breath Aspirin [Ecotrin] 81 mg PO DAILY Ibuprofen [Ibuprofen] 800 mg Q6HR PRN PRN Reason: Pain - Follow Up or Referral Follow Up: Giuseppe Killian MD [Physician] - - Forms/Instructions Exam - Constitutional Vitals: Period Temp Pulse Resp BP Sys/Peace Pulse Ox Last 24 Hr 96.6 F-100.2 F 67-87 20-20 93-134/40-73 93-97 Discharge Results Procedures and tests throughout hospitalization: Pending Orders 12/25/16 08:36 Sputum Culture and Gram Stain Routine DS: Provider Date of admission: 12/21/16 11:44 Primary care physician: . No PCP Attending physician on admission: Giuseppe Killian MD Consults: 12/21/16 12:47 Consult to Physician [CONS] Routine Comment: Right upper lobe pneumonia versus abscess Consulting Provider: Rojelio Sims Consulting Provider Notified: Yes When should Consulting Provider be notified: Now Consult to Specialist Group: Pulmonology When should Consulting Provider be notified: Now Person Notified: DR SIMS HAS SEEN THE PT Date Notified: 12/21/16 Time Notified: 13:32 12/21/16 12:53 Consult to Pharmacy [CONS] Routine Reason for Pharmacy Consult: Adjust Meds Renal Funct 12/21/16 13:40 Consult to Dietitian [CONS] Routine Reason for Dietitian: Diet Instruction Discharging clinician: Giuseppe Killian MD
[2016-12-27] MEDS: LEVOFLOXACIN INJ 500 MG in PREMIX 1 EACH IV SCH (09:19)
[2016-12-27 09:36] VITALS: BP 104/60
== END 2016-12-27 10:50 | disposition home or self-care (01) | DRG 140 ==
LOC: N.ED 09:59 → N.EDINP 11:44 → N.4E 12:03
PROVIDERS: ADMIT Specialist; ATTEND Specialist

== ENCOUNTER 2017-02-05 07:55 | Inpatient (IN) ==
[2017-02-05] MEDS ORDERED: ONDANSETRON 4 MG/2 ML VIAL ONE (08:00)
[2017-02-05] MEDS ORDERED: HYDROmorphone 2 MG/1 ML VIAL ONE (08:02)
[2017-02-05] MEDS ORDERED: ONDANSETRON 4 MG/2 ML VIAL IV STA (08:08)
[2017-02-05] MEDS ORDERED: DIPH/TET/ACEL PERT BOOSTER VACCINE 0.5 ML VIAL IM ONE ×2 (08:08→08:52)
[2017-02-05] MEDS ORDERED: LACTATED RINGERS 1,000 ML IV STA (08:08)
[2017-02-05] MEDS ORDERED: HYDROmorphone 2 MG/1 ML VIAL IV STA ×2 (08:08→10:00)
[2017-02-05 08:20] LABS: Basophils % 0.4 % (0.0-0.8); Eosinophils # 0.1 10*3/uL (0.0-0.87); Eosinophils % 1.4 % (0.00-10.9); Hematocrit 42.1 VOL% (42.0-52.0); Hemoglobin 15.2 GM/DL (14.0-18.0); Immature Granulocytes % 1.8 %; Immature Granulocytes Absolute 0.17 #; Lymphocytes # 2.9 10*3/uL (1.4-4.0); Lymphocytes % 31.2 % (21.2-54.2); Mean Corpuscular HGB Conc 36.1 GM/DL (32-36); Mean Corpuscular Hemoglobin 34 PG (27-34); Mean Corpuscular Volume 94.6 FL (87-102); Mean Platelet Volume 11.8 FL (9.6-12.0); Monocytes # 0.6 10*3/uL (0.11-0.8); Monocytes % 6.4 % (1.7-12.7); Neutrophils # 5.5 10*3/uL (1.4-7.4); Neutrophils % 58.8 % (38.7-73.9); Platelet Count 104 T/CUMM (130-400); Red Blood Count 4.45 MC/CUMM (3.8-5.5); Red Cell Distribution Width 12.1 % (9.3-17.3); White Blood Count 9.3 T/CUMM (4-12)
--- NOTE | 2017-02-05 08:34 | Emergency Department Note ---
Kacie Warren Mantricia, am scribing for, and in the presence of, Abram Toney MD 08:18. Dawna Warren James D, MD, personally performed the services described in this documentation, ascribed by Shayy Hester in my presence, and it is both accurate and complete 834 . Arrival - Arrival Chief Complaint: Fall Stated Complaint: fall through roof Mode of Arrival: Stretcher Limitations: No Limitations Source: Patient - History of Present Illness HPI Narrative: Pt is a 56 y/o black male arriving to ED by EMS for evaluation of injuries s/p fall that happened 744. 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 Pt is arriving to multiple lacerations to his ear and head along with back pain, right elbow pain, and nausea. Pt denies LOC. He is not sure when his last tetanus shot was. Pt has a PMHx of COPD and lung cancer. He reports no other complaints to ED. Onset (ago): minute(s) Consistency: constant Severity: moderate Allergies/Adverse Reactions: Allergies Allergy/AdvReac Type Severity Reaction Status Date / Time No Known Allergies Allergy Verified 12/21/16 10:06 Home Medications: Home Medications Medication Instructions Recorded Confirmed Type Albuterol Sulfate [Proair HFA] 2 puff INH DAILY PRN 07/28/15 02/05/17 History Aspirin [Ecotrin] 81 mg PO DAILY 04/25/16 02/05/17 History Ibuprofen [Ibuprofen] 800 mg PO Q6HR PRN 12/21/16 02/05/17 History Review of System - Review of System 12 point system: reviewed and no additional remarkable complaints except as stated - Review of System Constitutional: Absent: chills, diaphoresis Eyes: Absent: discharge, pain Head/Ears/Nose/Throat: Present: other (laceration to head and left ear). Absent : earache Gastrointestinal: Present: nausea. Absent: abdominal pain, vomiting Musculoskeletal: Present: arm pain (right elbow), back pain, lower back pain Medical,Surgical,& Family Hx - Medical History Respiratory: History of: COPD, Lung Cancer (Left upper lobe surg) - Family History Family History: Reports;: Family Hypertension (brother and sister) - Social History Smoking Status: Smoker, status unknown Exam Physical Examination: GENERAL: This is a well-nourished well-developed black male in no apparent distress. VITAL SIGNS: Reviewed HEENT: Laceration of the preauricular area on the left which is linear. Patient also has a laceration of the left occipital scalp. Pupils are equal round react to light. Extraocular movements are intact. TMs are clear bilaterally without evidence of hemotympanum. Oropharynx is benign with moist mucous membranes. NECK: There is minimal tenderness to palpation overlying the posterior cervical spinous processes. There are no masses. There is no lymphadenopathy. LUNGS: Minimal expiratory wheezes and anterior lung green with prolongation of expiratory phase. Chest rises symmetrically. There is no chest wall tenderness. CV: Heart is regular rate and rhythm without murmurs rubs or gallops. ABDOMEN: Abdomen is soft, nontender to palpation. There are no abdominal abnormal masses palpated. There is no organomegaly. Bowel sounds are present and active. There is no tenderness to palpation overlying the iliac wings bilaterally. Back: Patient has tenderness palpation over the posterior thoracic spinous processes. SKIN: Skin is warm and dry. No rash. EXTREMITIES: Patient has full range of motion without tenderness. There is no pedal edema. NEUROLOGIC: Awake alert and oriented 4. Cranial nerves II through XII are intact. Motor is 5 over 5 in all extremities bilaterally. Deep tendon reflexes are 2+ and bilaterally equal. GCS is 15. Vital Signs: Vital Signs Temperature 98.5 F 02/05/17 08:07 Pulse Rate 96 H 02/05/17 10:30 Respiratory Rate 16 02/05/17 10:30 Blood Pressure 109/78 02/05/17 10:30 O2 Sat by Pulse Oximetry 99 02/05/17 10:30 Course Course Narrative: Patient was given 2 L of IV fluids in the emergency department along with Dilaudid 2 mg IV and Zofran. Procedures - Laceration Laceration 1 Site: face Side (If applicable): left Size (cm): 6 Description: linear Depth: simple, single layer Local Anesthetic: lidocaine 1%, with epi Amount of Anesthesia Used (mL): 4 Pre-repair: wound explored, irrigated extensively Skin layer closed with: nylon Size: 5-0 Number of sutures: 8 Technique: running Subcutaneous layer closed with: vicryl Size: 3-0 Number of sutures: 1 Laceration 2 Site: scalp Side (If applicable): left Size (cm): 9 Description: flap Depth: involves muscle layer Local Anesthetic: lidocaine 1%, with epi Amount of Anesthesia Used (mL): 6 Pre-repair: wound explored Skin layer closed with: vicryl Size: 4-0, 5-0 Number of sutures: 15 Technique: running Subcutaneous layer closed with: vicryl Size: 3-0 Number of sutures: 1 Results - Labs CBC & BMP: 02/05/17 08:11 02/05/17 08:11 Lab Results: I have reviewed the patients labs Labs: Laboratory Tests 02/05/17 08:11 Lipase 836.0 H - EKG EKG results: interpreted by ERMD - Impressions EKG: Normal sinus rhythm with a rate of 66, nonspecific ST-T wave changes, normal axis - Diagnostic Findings Procedure: Chest x-ray: image reviewed by me (Left upper lobe consolidation with patient's history of lung cancer.), CT Abdomen and Pelvis: image reviewed by me (Left T1, T2, T3, T4 transverse process fractures. Patient has a fracture of the right kidney. There is no free air in the pelvis. There is no free fluid in the pelvis.), CT: image reviewed by me (CT head: No acute intracranial lesion or hemorrhage. CT cervical spine: No evidence of subluxation or fracture. CT lumbar spine: Patient has fractures of the left lumbar transverse spinous processes involving L1, L2, L3, and L4. CT thoracic spine: No evidence of fracture of the thoracic spine. Patient does have consolidation of the left upper lobe.), X-ray: image reviewed by me (Pelvis x- ray: No evidence of fracture.) Critical Care Time Critical Care Time: Yes Total Critical Care Time: 60 Attestation: See comments regarding fluid resuscitation and evaluation. Disposition Clinical Impression: Fall at work greater than 15 feet, Scalp laceration, Facial laceration, History of lung cancer, Abnormal EKG, Left lumbar transverse process fractures, Fractured right kidney Case discussed with: patient Disposition: Still a Patient Condition: Guarded
--- NOTE | 2017-02-05 08:45 | CT Report ---
History: Cervical spine injury related to fall. History of lung cancer Date: 02/05/2017 Study: CT cervical spine without contrast Comparison exam: No previous Thin spiral CT sections were obtained through the cervical spine without IV contrast. Multiplanar reconstruction images are also evaluated. This CT exam was performed using one or more the following dose reduction techniques: Automated exposure control, adjustment of the MA and/or KV according to patient size, or use of iterative reconstruction technique. There is no fracture, subluxation, or prevertebral soft tissue swelling. There is moderate degenerative disc narrowing and scattered mild to moderate anterior and posterior osteophyte formation at C3-C4 through C6-C7. There is moderate spinal stenosis at C3-C4 through C5-C6 related to posterior diffuse bulging disc and vertebral body osteophyte. There is moderate to severe neural foraminal stenosis bilaterally at C3-C4 through C5-C6 bilaterally related to uncovertebral and facet hypertrophy. There is mild to moderate neural foraminal narrowing on the left at C6-C7 related to uncovertebral and facet hypertrophy. Impression: No acute fracture. Degenerative disc disease of spine as detailed above PROCEDURE INTERPRETED AT [facility] DEPARTMENT OF RADIOLOGY Final Report Signed by: Dr. Tatianna Arauz
--- NOTE | 2017-02-05 08:52 | CT Report ---
History: Lumbar spine injury related to fall Date: 02/05/2017 Study: CT lumbar spine without contrast Comparison exam: No previous similar Thin spiral CT sections were obtained through the lumbar spine without IV contrast. Multiplanar reconstruction images are also evaluated. The CT exam was performed using one or more of the following dose reduction techniques: Automated exposure control, adjustment of the mA and/or kV according to patient size, or use of iterative reconstruction technique. There are acute mildly displaced fractures of the left transverse processes of L1-L4, presumably avulsion type fractures. There is also an acute nondisplaced sacral alar fracture more inferiorly on the right. There is no compression fracture of the lumbar spine. There is no malalignment. There is mild scattered lumbar spondylosis. The lumbar disc spaces are fairly well-maintained. There is no gross lumbar disc extrusion Impression: Acute mildly displaced fractures of the left transverse processes of L1-L4. Acute right sacral alar fracture PROCEDURE INTERPRETED AT [facility] DEPARTMENT OF RADIOLOGY Final Report Signed by: Dr. Tatianna Arauz
--- NOTE | 2017-02-05 08:54 | CT Report ---
CT brain Indication: Head injury after fall Comparison: None available Technique: Axial CT imaging of the brain is performed without contrast with 3 mm increments. Findings: No evidence of hemorrhage, mass mass effect midline shift or acute infarct seen. There is moderate diffuse cerebral atrophy. There are areas of decreased density seen within the white matter. Otherwise the brain parenchyma attenuation and differentiation appears within normal limits. The ventricles and cisterns are normal in caliber. No cranial or skull base abnormality is identified. Impression: No evidence of acute injury. This CT exam was performed using one or more the following dose reduction techniques: Automated exposure control, adjustment of the MA and/or KV according to patient size, or use of iterative reconstruction technique. PROCEDURE INTERPRETED AT [facility] DEPARTMENT OF RADIOLOGY Final Report Signed by: Dr. Noé Mortensen
--- NOTE | 2017-02-05 09:00 | EKG Report ---
Stationary ECG Study [facility] ER Test Date: 02/05/2017 8:30:07 AM Pat Name: BRAIN LAUGHLIN Department: Room: Gender: M Feed Grinder: : 1960 Requested by: Abram Santana Order Number: [id number] Reading MD: YVAN NORTON Intervals Delta Rate: 66 P: 84 NC: 154 QRS: 11 QRSD: 102 T: 79 QT: 368 QTc: 382 Interpretive Statements SINUS RHYTHM ST ELEVATION CONSISTENT WITH EARLY REPOL Electronically Signed On 02-06-17 16:29:43 CDT by YVAN NORTON [email or web address]
--- NOTE | 2017-02-05 09:00 | CT Report ---
History: Back injury related to fall Date: 02/05/2017 Study: CT thoracic spine without contrast Comparison exam: CT chest December 21, [address] sections were obtained through the thoracic spine without IV contrast. Multiplanar reconstruction images are also evaluated. This CT exam was performed using one or more the following dose reduction techniques: Automated exposure control, adjustment of the MA and/or KV according to patient size, or use of iterative reconstruction technique. There are mild compression fractures of an acute nature involving the superior endplates of T2 and T3 more anteriorly. There is less than 20% compression. There is no retropulsion. No additional fractures seen. There is no malalignment. There is minimal scattered anterior spondylosis. There is no gross disc extrusion or gross high-grade spinal stenosis. Chronic lung changes are noted in the lung apices in this patient with known history of left lung cancer. Impression: Acute mild compression fractures of the T2 and T3 vertebral bodies without significant retropulsion PROCEDURE INTERPRETED AT [facility] DEPARTMENT OF RADIOLOGY Final Report Signed by: Dr. Tatianna Arauz
[2017-02-05 09:02] LABS: Alanine Aminotransferase 177 U/L (16-61); Albumin 3.4 G/DL (3.4-5.0); Alkaline Phosphatase 102 U/L (45-117); Aspartate Amino Transferase 389 U/L (0-37); Calcium 8.8 MG/DL (8.5-10.1); Total Protein 7.8 G/DL (6.4-8.3)
[2017-02-05 09:03] LABS: Amylase 54 U/L (25-115); Blood Urea Nitrogen 17 MG/DL (7-18); Glucose 155 MG/DL (74-106); Osmolality,Calculated 277.8 MOS/KG (273-304); Potassium 5.8 MMOL/L (3.5-5.1); Sodium 137 MMOL/L (136-145)
[2017-02-05] MEDS ORDERED: SODIUM CHLORIDE 0.9% 1,000 ML IV STA (09:09)
[2017-02-05 09:12] LABS: INR 1.2; PT Patient Result 13.3 SECS
[2017-02-05 09:30] LABS: ABG Base Excess -2.2 MMOL/L (-2.5-2.5); ABG HCO3 22.3 MMOL/L (20-26); ABG PCO2 36.7 MM HG (35-48); ABG PH 7.391 (7.35-7.45); ABG PO2 51.8 MM HG (80-95); ABG TCO2 19.7 MMOL/L (23-27)
[2017-02-05 09:57] LABS: Apearance,Urine Slightly Hazy (Clear); Bilirubin,Urine Negative (Negative); Blood, Urine Large mg/dL (Negative); Glucose,Urine (UA) Negative (Negative); Ketones,Urine Negative (Negative); Mucus,Urine Occasional /LPF (Occasional); Nitrite,Urine Negative (Negative); Protein,Urine 100 MG/DL; RBC,Urine 617 /HPF (0-4); Squamous Epithelial Cell,Urine Occasional /HPF (0-10); Urine Color Yellow (Yellow); Urine Specific Gravity 1.048 (1.001-1.035); Urine Urobilinogen < 2.0 EU/DL (0.2-1.0); WBC,Urine 3 /HPF (0-6)
--- NOTE | 2017-02-05 09:57 | CT Report ---
CT chest abdomen pelvis w con Indication: Lung cancer, falling injury Comparison: CT chest 21 Dec 2016, abdomen and pelvis CT July 2015 Technique: Axial CT imaging of the chest, abdomen and pelvis is performed with intravenous contrast. Contrast dose is 100 cc of Omnipaque 350. Findings: CT chest: Heart, mediastinum are within normal limits. The great vessels show no evidence of abnormality Left upper lung postsurgical changes and soft tissue densities are stable when compared to previous exam. The right upper lung infiltrates from previous exam have improved right upper lung infiltrates have mostly resolved. No other evidence of lung parenchymal abnormality is seen. No pneumothorax or effusion is present. Thoracic spine fractures are present, see thoracic spine CT report. There is fracture of the posterior left eighth through 12th ribs with slight displacement of the ninth, 10th and 11th rib fractures. There is small amounts of hematoma around the displaced fractures. There are nondisplaced fractures of the right posterior seventh, eighth, ninth, 10th and 11th ribs. No other chest wall abnormalities are identified. CT abdomen: There is absence of perfusion involving approximately 50% of the right kidney. 2 right renal arteries are present. There is focal cut off of the inferior proximal right renal artery. There is stranding around the artery and vessels in this area. Superior right renal artery is intact. There is laceration of the superior aspect of the spleen with small amount of perisplenic stranding and hemorrhage. The liver, pancreas, adrenal glands and left kidneys are normal in size and enhancement. No evidence of focal lesion is demonstrated in the solid organs. The bowel caliber is normal and no wall thickening or adjacent inflammatory change is seen. No evidence of free fluid or free air is present. Lumbar spine fractures are present see CT lumbar spine report. CT pelvis: There is nondisplaced fracture of the left anterior acetabulum. No adjacent hematoma is seen. The bowel and bladder appear within normal limits. The pelvic organs show no evidence of abnormality. Impression: Absence of perfusion of estimated 50% of the kidney more prominent inferiorly. There are 2 right renal arteries and the superior artery is patent. The right renal artery has a focal cut off near the origin with stranding in the soft tissues around the vessels in this area consistent with a renal arterial injury. No contrast extravasation is seen at the site of arterial injury. A small osseous splenic laceration superior pole. Multiple bilateral rib fractures. Nondisplaced left acetabular fracture. PROCEDURE INTERPRETED AT [facility] DEPARTMENT OF RADIOLOGY Final Report Signed by: Dr. Noé Mortensen
--- NOTE | 2017-02-05 09:58 | XRay Report ---
XR pelvis AP 1 or 2 Views Indication: Pain after falling injury Comparison: None available Findings: No evidence of fracture seen. The alignment of the joints appears normal. No degenerative change is present. Contrast is in the bladder and ureter partially limiting some areas of evaluation. No soft tissue abnormality is seen. Impression: No definite acute fractures demonstrated. PROCEDURE INTERPRETED AT [facility] DEPARTMENT OF RADIOLOGY Final Report Signed by: Dr. Noé Mortensen
--- NOTE | 2017-02-05 10:00 | XRay Report ---
XR chest 1V portable Indication: Right upper lobe pneumonia, high-impact falling injury Comparison: 26 Dec 2016 Findings: The heart and mediastinum are similar in size and configuration. Chronic changes in left upper lung with surgery and increased density are similar to previous exam. The right upper lung infiltrates and fluid on the previous study have resolved. The pulmonary vascularity is normal in caliber. Suggestion of left sixth rib fracture laterally. No lung infiltrates, effusions, pneumothorax or other abnormality is demonstrated. Impression: There is suggestion of left lateral sixth rib fracture. No other acute injury. Right upper lung density on previous exam has mostly resolved. PROCEDURE INTERPRETED AT [facility] DEPARTMENT OF RADIOLOGY Final Report Signed by: Dr. Noé Mortensen
[2017-02-05 10:02] LABS: Barbiturates Screen,Urine Negative (Negative); Benzodiazepines Screen,Urine Negative (Negative); Cannabinoid Screen,Urine Positive (Negative); Opiate Screen,Urine Positive (Negative); Phencyclidine Screen,Urine Negative (Negative)
--- NOTE | 2017-02-05 10:45 | General Surg History&Physical ---
Assessment and Plan (1) Fall Problem details: kidney laceration. <20% compression fractures. Status: Acute Assessment and plan: 24 hour observation with serial h/h q 6 hours. pain meds. Current Visit: Yes History of Present Illness Chief complaint: s/p fall History of present illness: Mr. Barton is a 56 year old male who earlier today fell through his roof into his floor. Comes in sustaining some left shoulder arm pain. Hemodynamically stable after a bolus and neurologically intact. Patient has a history of lung cancer status post treatment about 5 years ago. Home Medications Medication Instructions Recorded Confirmed Type Albuterol Sulfate [Proair HFA] 2 puff INH DAILY PRN 07/28/15 12/21/16 History Aspirin [Ecotrin] 81 mg PO DAILY 04/25/16 12/21/16 History Ibuprofen [Ibuprofen] 800 mg Q6HR PRN 12/21/16 12/21/16 History Hydrocodone Bit/Homatrop Me-Br 5 ml PO Q4HR PRN 12/27/16 12/27/16 History [Hydrocodone-Homatropine Syrup] Levofloxacin Tab [Levaquin Tab] 750 mg PO DAILY 12/27/16 12/27/16 History Allergies Allergy/AdvReac Type Severity Reaction Status Date / Time No Known Allergies Allergy Verified 12/21/16 10:06 Medical,Surgical,& Family Hx - Medical History Cardio: No history of: CHF, CAD Psychological: No history of: Depression Respiratory: History of: COPD, Lung Cancer (Left upper lobe surg) - Family History Family History: Reports;: Family Hypertension (brother and sister) - Social History Smoking Status: Smoker, status unknown Frequency of Alcohol Use: None Type of Drug Use: None Exam - Constitutional Vitals: Period Temp Pulse Resp BP Sys/Peace Pulse Ox Last 24 Hr 98.5 F-98.5 F 79-79 33-33 81-81/60-60 95 General appearance: normal weight, no acute distress - Head Head exam: Present: normal inspection - Eye Eye exam: Present: EOMI - ENT ENT exam: Present: normal exam - Neck Neck exam: Present: normal inspection - Respiratory Respiratory exam: Present: clear to auscultation bilaterally - Cardiovascular Cardiovascular exam: Present: RRR - GI/Abdominal GI/Abdominal exam: Absent: distended, hernia, mass, tenderness - Neurological Exam Neurological exam: Present: alert, oriented X3. Absent: motor sensory deficit - Skin Skin exam: Present: normal color - Constitutional Constitutional: Present: fatigue - Cardiovascular Cardiovascular: Absent: chest pain with activity, syncope - Gastrointestinal Gastrointestinal: Absent: abdominal pain, change in bowel habits, nausea - Genitourinary Genitourinary: Present: flank pain, hematuria - Musculoskeletal Musculoskeletal: Present: back pain - Neurological Neurological: Absent: abnormal gait, headache(s), numbness, paresthesias Results - Labs CBC & BMP: 02/05/17 08:11 02/05/17 08:11 - Diagnostic Findings Procedure: CT Abdomen and Pelvis: image reviewed by me, report reviewed by me, CT - chest: image reviewed by me, report reviewed by me, CT: image reviewed by me, report reviewed by me
[2017-02-05] MEDS ORDERED: LIDOCAINE 1%/EPI INJ 20 ML VIAL ONE (12:03)
[2017-02-05] MEDS ORDERED: ALBUTEROL 2.5 MG/3 ML NEB RESP TX PRN (14:00)
[2017-02-05] MEDS: MORPHINE 2 MG/1 ML SYRINGE IV PRN ×2 (15:00→20:01)
[2017-02-05 16:34] LABS: Hematocrit 35.3 VOL% (42.0-52.0); Hemoglobin 12.3 GM/DL (14.0-18.0)
[2017-02-05] MEDS: ONDANSETRON 4 MG/2 ML VIAL IV PRN (20:08)
[2017-02-05 22:28] LABS: Hematocrit 33.3 VOL% (42.0-52.0); Hemoglobin 11.4 GM/DL (14.0-18.0)
[2017-02-06] MEDS: MORPHINE 2 MG/1 ML SYRINGE IV PRN ×4 (01:14→18:51)
[2017-02-06 05:58] LABS: Hematocrit 30.7 VOL% (42.0-52.0); Hemoglobin 10.6 GM/DL (14.0-18.0)
[2017-02-06] MEDS: ONDANSETRON 4 MG/2 ML VIAL IV PRN (06:37)
--- NOTE | 2017-02-06 08:16 | XRay Report ---
History: Cough. History of lung cancer. Trauma related to fall Date: 02/06/2017 Study: Chest x-ray AP portable Comparison exam: 02/05/2017 The cardiomediastinal silhouette is unchanged. There is some chronic parenchymal and pleural density in the left lung apex as before in this patient with a history of lung cancer. There is some minor increased atelectatic change in the right lung base. There is no obvious pneumothorax. There is no new or worsening process otherwise. There is no gross pleural effusion. Osseous structures are unchanged. Impression: Minimally increased right basilar atelectasis compared to the previous study. Otherwise unchanged PROCEDURE INTERPRETED AT [facility] DEPARTMENT OF RADIOLOGY Final Report Signed by: Dr. Tatianna Arauz
[2017-02-06] MEDS: PANTOPRAZOLE 40 MG TABLET PO SCH (08:52)
[2017-02-06 10:11] LABS: Hematocrit 30.5 VOL% (42.0-52.0); Hemoglobin 10.6 GM/DL (14.0-18.0)
[2017-02-06 10:55] LABS: Albumin 3.1 G/DL (3.4-5.0); Bilirubin,Direct 0.4 MG/DL (0.0-0.20); Bilirubin,Indirect 0.4 MG/DL (0.0-1.0); Bilirubin,Total 0.8 MG/DL (0.2-1.0); Total Protein 6.6 G/DL (6.4-8.3)
[2017-02-06 13:03] LABS: HIV Antigen/Antibody Result Nonreactive (Nonreactive)
[2017-02-06] MEDS ORDERED: ALUMINUM/MAGNES/SIMETH MAX STR 30 ML UDCUP PO ONE (14:00)
[2017-02-06 14:23] LABS: Calcium 8.5 MG/DL (8.5-10.1); Osmolality,Calculated 270.1 MOS/KG (273-304); Potassium 4.5 MMOL/L (3.5-5.1)
[2017-02-06 16:49] LABS: Hematocrit 30.4 VOL% (42.0-52.0); Hemoglobin 10.7 GM/DL (14.0-18.0)
--- NOTE | 2017-02-06 17:39 | Urology Consultation ---
Assessment and Plan - Time spent with patient Time spent with patient: Greater than 30 minutes (1) Fractured right kidney Status: Acute Assessment and plan: This is not really a renal laceration. I think this is a vascular thrombosis injury. At any rate we recommend bedrest and observation. I believe he will probably lose half his kidney but only time will tell. I have informed the patient of these findings. Current Visit: Yes History of Present Illness - Data of Consult Patient: new to practice Consult date: 02/06/17 Requesting Physician: Derek Ramirez - Consult Narrative Reason for consult: Right renal injury History of present illness: Mr. 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 He is transported [place]. His evaluation had a CT scan that shows a poorly perfused right kidney with no extravasation and no perirenal hematoma. CT scan shows 2 arteries. I suspect he thrombosed the lower artery which caused no perfusion to the bottom half of that right kidney and some of the lateral border. There is no contrast extravasation or hematoma. At this point he is complaining of a distended abdomen. He is having pain in his back. He also had some vertebral fractures and apparently contused left elbow. My recommendation is observation. At this point there is little that can be done. His H&H has drifted slightly down. He is having a repeat CT and we will follow that. I informed the patient that he will probably have a kidney that has had a function when it is all said and done. His creatinine is normal at present. The left kidney on the CT looks normal. CC: Derek Ramirez MD - Home Medications and Allergies Home Medications: Home Medications Medication Instructions Recorded Confirmed Type Albuterol Sulfate [Proair HFA] 2 puff INH DAILY PRN 07/28/15 02/05/17 History Aspirin [Ecotrin] 81 mg PO DAILY 04/25/16 02/05/17 History Ibuprofen [Ibuprofen] 800 mg PO Q6HR PRN 12/21/16 02/05/17 History Allergies/Adverse Reactions: Allergies Allergy/AdvReac Type Severity Reaction Status Date / Time No Known Allergies Allergy Verified 12/21/16 10:06 12 point system: reviewed and no additional remarkable complaints except as stated - Genitourinary Genitourinary: Absent: difficulty urinating, dysuria, flank pain, hematuria, scrotal swelling, testicular mass, urinary frequency, urinary incontinence Exam - Constitutional Vitals: Period Temp Pulse Resp BP Sys/Peace Pulse Ox Last 24 Hr 98.5 F-99.4 F 88-110 18-20 109-133/70-86 91-95 - GI/Abdominal GI/Abdominal exam: Present: distended, firm, hypoactive bowel sounds, other (No Johnson Liu sign). Absent: mass - Genitourinary Genitourinary: scrotum without lesions, cysts, edema or rash, penis with no lesions or discharge, prostate nontender, with no enlargement or nodules Results - Labs CBC & BMP: 02/06/17 16:13 02/06/17 Unknown Lab Results: I have reviewed the past 24 hour labs - Diagnostic Findings Procedure: CT Abdomen and Pelvis: report reviewed by me (I reviewed)
--- NOTE | 2017-02-06 19:53 | CT Report ---
CT abdomen pelvis w con Indication: Generalized abdominal pain. CT ABDOMEN AND PELVIS WITH CONTRAST DLP: 1019 mGy*cm. One or more of the following dose reduction techniques was used: Automated exposure control, adjustment of the mA and/or kV according the patient size, or use of iterative reconstruction techniques. Comparison: 02/05/2017 Technique: Axial CT images of the abdomen and pelvis were obtained with IV contrast; Omnipaque 350, 100 cc. Oral contrast was administered. Abdomen: Dependent atelectasis and miniscule pleural effusions are now present. Heart size remains normal. Right renal injury is again shown with decreased perfusion of approximately 50% of the right renal parenchyma. Small amount of fluid in Morison's pouch noted, with inflammation or stranding extending from the right kidney to the posterior aspect of the ascending colon. The liver, spleen, pancreas, adrenal glands and left kidney remain unremarkable. Colon is distended but not dilated with gas all the way to the rectum. No small bowel dilatation shown although scattered air-fluid levels are present. No mesenteric edema. No free air. Pelvis: Urinary bladder, prostate are within normal limits. No free fluid in the pelvis. Vascular calcifications again demonstrated. Fractures of the left transverse processes L1, L2, L3 and L4 appear stable. Impression: 1. Increasing gaseous distention of the colon without dilatation. No downstream obstruction identified. Suspect severe ileus. 2. 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 The colon itself appears unremarkable. 3. Left transverse process fractures of the lumbar spine as described. Left rib fractures detailed previously. 4. Progressive bibasilar atelectasis. Miniscule pleural effusions. PROCEDURE INTERPRETED AT [facility] DEPARTMENT OF RADIOLOGY Final Report Signed by: Giuseppe Palacios M.D.
[2017-02-06] MEDS: SODIUM BICARBONATE 650 MG TABLET PO PRN (21:54)
[2017-02-06 21:55] LABS: Hematocrit 29.9 VOL% (42.0-52.0); Hemoglobin 10.5 GM/DL (14.0-18.0)
[2017-02-07 05:13] LABS: Hematocrit 27.9 VOL% (42.0-52.0); Hemoglobin 9.8 GM/DL (14.0-18.0)
[2017-02-07 05:50] LABS: Calcium 8.9 MG/DL (8.5-10.1); Osmolality,Calculated 268.2 MOS/KG (273-304); Potassium 4.3 MMOL/L (3.5-5.1)
[2017-02-07] MEDS: PANTOPRAZOLE 40 MG TABLET PO SCH (08:04)
--- NOTE | 2017-02-07 09:26 | General Surgery Progress Note ---
Assessment and Plan - Time spent with patient Time spent discussing smoking cessation with patient: 3 to 10 minutes (1) Fall Problem details: kidney laceration. <20% compression fractures. Status: Acute Assessment and plan: Patient still with some back pain. Will consult pain management to assist with that. Continue ambulating with PT. anticipate discharge tomorrow Current Visit: Yes Subjective Patient reports: Present: no new complaints (Still complaining of some abdominal pain), feels better, still having pain, pain is less, tolerating a regular diet (Patient seen yesterday and today. Overnight he had a short bout of abdominal pain and went for a CT scan to evaluate. Patient said he felt better afterwards) Exam - Constitutional Vitals: Period Temp Pulse Resp BP Sys/Peace Pulse Ox Last 24 Hr 98.5 F-100.7 F 102-128 16-22 129-151/77-86 91-95 General appearance: normal weight - ENT ENT exam: Present: normal exam - Respiratory Respiratory exam: Present: clear to auscultation bilaterally - Cardiovascular Cardiovascular exam: Present: RRR - GI/Abdominal GI/Abdominal exam: Present: normal bowel sounds. Absent: tenderness, rebound - Neurological Exam Neurological exam: Present: alert, oriented X3 Results - Labs CBC & BMP: 02/07/17 04:44 02/07/17 04:44 - Diagnostic Findings Procedure: CT Abdomen and Pelvis: report reviewed by me Quality Measures - VTE Contraindication to Pharmacological VTE Prophylaxis: High Risk of Bleeding
[2017-02-07] MEDS: MORPHINE 2 MG/1 ML SYRINGE IV PRN (10:52)
[2017-02-07] MEDS: ACETAMINOPHEN 325 MG TABLET PO PRN (11:05)
--- NOTE | 2017-02-07 11:16 | Urology Progress Note ---
Assessment and Plan (1) Fractured right kidney Status: Acute Assessment and plan: This is not really a renal laceration. I think this is a vascular thrombosis injury. At any rate we recommend bedrest and observation. I believe he will probably lose half his kidney but only time will tell. I have informed the patient of these findings. Current Visit: Yes Urology - PN: Subj Interval history: Patient seems stable from a standpoint. He had a repeat CT scan last night. The right kidney is unchanged. He has had type IV injury and bowel have his kidney is not perfused. Small chance it may recover but probably will not. There is no hematoma. His urine remains clear. His H&H has drifted down. His creatinine is normal. I recommend observation. Exam - Constitutional Vitals: Period Temp Pulse Resp BP Sys/Peace Pulse Ox Last 24 Hr 98.5 F-101.5 F 109-128 16- 120-151/71-86 91-95 Results - Labs CBC & BMP: 02/07/17 04:44 02/07/17 04:44
[2017-02-07] MEDS: SODIUM BICARBONATE 650 MG TABLET PO PRN (17:00)
--- NOTE | 2017-02-07 17:19 | Pain Management Consult Note ---
Assessment and Plan (1) Fracture of transverse process of lumbar vertebra Status: Acute Assessment and plan: The lumbar transverse process fractures will be treated conservatively with the lumbar bracing Current Visit: Yes Qualifiers: Encounter type: initial encounter (2) Fracture of thoracic vertebra, compression Status: Acute Assessment and plan: Patient has acute T2-3 T3 compression fracture we will do conservative treatment for about 6-8 weeks before kyphoplasty Current Visit: Yes Qualifiers: Encounter type: initial encounter History of Present Illness Chief complaint: mid to low back pain , abdominal pain History of present illness: Mr. Barton is a 56 year old male Patient seen in pain consultation patient has fallen off a roof have severe lower back pain due to L1-L4 transverse process fractures patient also has acute T2-T3 compression fractures patient also has a ileus and has not had a bowel movement for about 3 days. I discussed with the patient detail that the transverse process fractures of the lumbar spine dated do not need a kyphoplasty procedure or surgical intervention as far as the thoracic compression fractures are concerned we will have to wait and give it some time if he does not improve in about a month to 6 weeks T2-3 T3 kyphoplasty can be done even though it may be technically difficult due to the high level of the injury. Patient seems to understand this and is agreeable to the plan of custodial Medications Medication Instructions Recorded Confirmed Type Albuterol Sulfate [Proair HFA] 2 puff INH DAILY PRN 07/28/15 02/05/17 History Aspirin [Ecotrin] 81 mg PO DAILY 04/25/16 02/05/17 History Ibuprofen [Ibuprofen] 800 mg PO Q6HR PRN 12/21/16 02/05/17 History Allergies Allergy/AdvReac Type Severity Reaction Status Date / Time No Known Allergies Allergy Verified 12/21/16 10:06 Medical,Surgical,& Family Hx - Medical History Cardio: No history of: CHF, CAD Psychological: History of: Psychiatric/Substance Abuse Tx (positive for cocaine) No history of: Depression Respiratory: History of: COPD, Lung Cancer (Left upper lobe surg) Musculoskeletal: History of: Musculoskeletal Problems (spinal, rib, sacral fractures after 15 foot fall) - Surgical History Thoracic Surgeries: Surgical HX of;: Lobectomy (left upper) - Family History Family History: Reports;: Family Hypertension (brother and sister) - Social History Smoking Status: Current every day smoker Frequency of Alcohol Use: None Type of Drug Use: Cocaine Quality Measures - VTE Contraindication to Pharmacological VTE Prophylaxis: High Risk of Bleeding 12 point system: reviewed and no additional remarkable complaints except as stated Exam - Constitutional Vitals: Period Temp Pulse Resp BP Sys/Peace Pulse Ox Last 24 Hr 99.8 F-101.5 F 105-128 16-22 120-151/71-83 91-96 - Head Head exam: Present: normal inspection - Eye Eye exam: Present: EOMI Pupils: Present: CAMI - ENT ENT exam: Present: normal exam Ear exam: Present: intact Mouth exam: Present: normal external inspection - Neck Neck exam: Present: normal inspection - Respiratory Respiratory exam: Present: clear to auscultation bilaterally - Cardiovascular Cardiovascular exam: Present: RRR - GI/Abdominal GI/Abdominal exam: Present: distended, hypoactive bowel sounds - Back Exam Back exam: Present: vertebral tenderness - Neurological Exam Neurological exam: Present: abnormal gait - Skin Skin exam: Present: normal color Results - Labs CBC & BMP: 02/07/17 04:44 02/07/17 04:44 Lab Results: I have reviewed the past 24 hour labs
[2017-02-08] MEDS: MORPHINE 2 MG/1 ML SYRINGE IV PRN ×5 (03:39→21:58)
--- NOTE | 2017-02-08 06:19 | Pain Management Progress Note ---
Assessment and Plan (1) Fracture of transverse process of lumbar vertebra Status: Acute Assessment and plan: The lumbar transverse process fractures will be treated conservatively with the lumbar bracing 02/08 plan is to continue current pain treatment regimen I am hesitant to increase pain medications and fear of worsening ileus Current Visit: Yes Qualifiers: Encounter type: initial encounter (2) Fracture of thoracic vertebra, compression Status: Acute Assessment and plan: Patient has acute T2-3 T3 compression fracture we will do conservative treatment for about 6-8 weeks before kyphoplasty Current Visit: Yes Qualifiers: Encounter type: initial encounter Pain - Subjective Interval history: The patient is currently stable on the pain treatment regimen. Main issue may be ileus and he has not had a bowel movement overnight. Exam - Constitutional Vitals: Period Temp Pulse Resp BP Sys/Peace Pulse Ox Last 24 Hr 99.3 F-101.5 F 99-122 16-20 120-151/64-87 91-96 General appearance: mild distress - Head Head exam: Present: normal inspection - Eye Eye exam: Present: EOMI Pupils: Present: ACMI - ENT ENT exam: Present: normal exam Ear exam: Present: intact Mouth exam: Present: normal external inspection - Neck Neck exam: Present: normal inspection - Respiratory Respiratory exam: Present: clear to auscultation bilaterally - Cardiovascular Cardiovascular exam: Present: RRR - GI/Abdominal GI/Abdominal exam: Present: distended, hypoactive bowel sounds - Extremities Exam Extremities exam: Present: normal inspection - Back Exam Back exam: Present: vertebral tenderness - Neurological Exam Neurological exam: Present: abnormal gait - Skin Skin exam: Present: normal color Results - Labs CBC & BMP: 02/07/17 04:44 02/07/17 04:44 Lab Results: I have reviewed the past 24 hour labs Quality Measures - VTE Contraindication to Pharmacological VTE Prophylaxis: High Risk of Bleeding
[2017-02-08] MEDS: PANTOPRAZOLE 40 MG TABLET PO SCH (08:13)
--- NOTE | 2017-02-08 14:32 | General Surgery Progress Note ---
Assessment and Plan (1) Fall Problem details: kidney laceration. <20% compression fractures. Status: Acute Assessment and plan: Pain management following appreciated. Dulcolax to hopefully jump start bowels again. Continue to encourage ambulation with PT. Current Visit: Yes Subjective Patient reports: Present: tolerating liquids well. Absent: no flatus, bowel movement, nausea (Patient a little more distended today) Narrative: Patient a little more distended today. Inability to wear the TLSO brace. Exam - Constitutional Vitals: Period Temp Pulse Resp BP Sys/Peace Pulse Ox Last 24 Hr 97.4 F-100.7 F 93-121 16-20 127-144/64-87 95-96 General appearance: normal weight - Head Head exam: Present: normal inspection - GI/Abdominal GI/Abdominal exam: Present: distended. Absent: tenderness Results - Labs CBC & BMP: 02/07/17 04:44 02/07/17 04:44 Quality Measures - VTE Contraindication to Pharmacological VTE Prophylaxis: High Risk of Bleeding
[2017-02-08] MEDS ORDERED: BISACODYL 10 MG SUPP RECTAL ONE (15:03)
--- NOTE | 2017-02-08 15:08 | Urology Progress Note ---
Assessment and Plan (1) Fractured right kidney Status: Acute Assessment and plan: This is not really a renal laceration. I think this is a vascular thrombosis injury. At any rate we recommend bedrest and observation. I believe he will probably lose half his kidney but only time will tell. I have informed the patient of these findings. Current Visit: Yes Urology - PN: Subj Interval history: Patient is voiding his urine is remained clear. He developed an ileus. He is not ambulating. I recommend continued observation. Exam - Constitutional Vitals: Period Temp Pulse Resp BP Sys/Peace Pulse Ox Last 24 Hr 97.4 F-100.7 F 93-121 16-20 127-144/64-87 95-96 Results - Labs CBC & BMP: 02/07/17 04:44 02/07/17 04:44
[2017-02-08 15:42] LABS: Basophils % 0.1 % (0.0-0.8); Eosinophils % 0.2 % (0.00-10.9); Hematocrit 26.7 VOL% (42.0-52.0); Hemoglobin 9.4 GM/DL (14.0-18.0); Immature Granulocytes % 1.1 %; Immature Granulocytes Absolute 0.23 #; Lymphocytes # 1.4 10*3/uL (1.4-4.0); Lymphocytes % 6.5 % (21.2-54.2); Mean Corpuscular HGB Conc 35.2 GM/DL (32-36); Mean Corpuscular Hemoglobin 34 PG (27-34); Mean Corpuscular Volume 95.7 FL (87-102); Mean Platelet Volume 10.9 FL (9.6-12.0); Monocytes % 9.3 % (1.7-12.7); NRBC # 0.02 10*3/uL; Neutrophils # 18.1 10*3/uL (1.4-7.4); Neutrophils % 82.8 % (38.7-73.9); Platelet Count 125 T/CUMM (130-400); Red Blood Count 2.79 MC/CUMM (3.8-5.5); Red Cell Distribution Width 12.1 % (9.3-17.3); White Blood Count 21.9 T/CUMM (4-12)
--- NOTE | 2017-02-08 15:53 | XRay Report ---
History: Fever and cough Date: 02/08/2017 Study: Chest x-ray AP portable Comparison exam: February 06, 2017 There is chronic parenchymal and pleural disease in the left lung apex in this patient with a history of lung cancer. The left lung is unchanged. There is some mildly increased strandy and hazy atelectasis/infiltrate in the right lower lung. Early pneumonia cannot be excluded. There is no pleural effusion. The cardiomediastinal silhouette is stable. Osseous structures are similar. Impression: Mildly increased atelectasis/infiltrate in the right lung base. Consider early pneumonia. Otherwise unchanged PROCEDURE INTERPRETED AT [facility] DEPARTMENT OF RADIOLOGY Final Report Signed by: Dr. Tatianna Arauz
[2017-02-08 16:03] LABS: Hypochromasia Slight; Lymphocytes 9 % (20-55); Platelet Estimate Decreased; Segmented Neutrophils 85 % (50-85); Total Cells Counted 100
[2017-02-08 16:04] LABS: Anisocytosis Slight; Macrocytosis Slight
[2017-02-08 16:09] LABS: Calcium 8.7 MG/DL (8.5-10.1); Magnesium 2.2 MG/DL (1.8-2.4); Osmolality,Calculated 261.8 MOS/KG (273-304); Potassium 4.2 MMOL/L (3.5-5.1)
[2017-02-08] MEDS: PIPERACILLIN/TAZOBACTAM 3,375 MG in SODIUM CHLORIDE 0.9% 100 ML IV SCH (17:32)
[2017-02-08] MEDS: ONDANSETRON 4 MG/2 ML VIAL IV PRN (18:24)
[2017-02-08] MEDS: SODIUM CHLORIDE 0.9% 1,000 ML IV SCH (21:52)
[2017-02-09] MEDS: PIPERACILLIN/TAZOBACTAM 3,375 MG in SODIUM CHLORIDE 0.9% 100 ML IV SCH ×3 (00:31→17:50)
[2017-02-09] MEDS: MORPHINE 2 MG/1 ML SYRINGE IV PRN ×4 (01:45→20:19)
[2017-02-09 02:05] LABS: Apearance,Urine CLEAR (Clear); Bilirubin,Urine Negative (Negative); Blood, Urine Moderate mg/dL (Negative); Glucose,Urine (UA) Negative (Negative); Ketones,Urine Negative (Negative); Nitrite,Urine Negative (Negative); Protein,Urine 30 MG/DL; RBC,Urine 17 /HPF (0-4); Urine Color Yellow (Yellow); WBC,Urine 2 /HPF (0-6)
[2017-02-09 03:58] LABS: Basophils % 0.1 % (0.0-0.8); Eosinophils # 0.1 10*3/uL (0.0-0.87); Eosinophils % 0.2 % (0.00-10.9); Hematocrit 26.4 VOL% (42.0-52.0); Hemoglobin 9.4 GM/DL (14.0-18.0); Immature Granulocytes % 1.3 %; Immature Granulocytes Absolute 0.26 #; Lymphocytes # 1.2 10*3/uL (1.4-4.0); Lymphocytes % 6.2 % (21.2-54.2); Mean Corpuscular HGB Conc 35.6 GM/DL (32-36); Mean Corpuscular Hemoglobin 34 PG (27-34); Mean Platelet Volume 11.3 FL (9.6-12.0); Monocytes # 1.7 10*3/uL (0.11-0.8); Monocytes % 8.3 % (1.7-12.7); Neutrophils # 16.9 10*3/uL (1.4-7.4); Neutrophils % 83.9 % (38.7-73.9); Platelet Count 134 T/CUMM (130-400); Red Blood Count 2.75 MC/CUMM (3.8-5.5); Red Cell Distribution Width 12.1 % (9.3-17.3); White Blood Count 20.1 T/CUMM (4-12)
[2017-02-09 04:13] LABS: Calcium 8.3 MG/DL (8.5-10.1); Osmolality,Calculated 268.4 MOS/KG (273-304); Potassium 4.2 MMOL/L (3.5-5.1)
[2017-02-09 04:17] LABS: Albumin 2.8 G/DL (3.4-5.0); Bilirubin,Direct 0.7 MG/DL (0.0-0.20); Bilirubin,Indirect 1.5 MG/DL (0.0-1.0); Bilirubin,Total 2.2 MG/DL (0.2-1.0); Total Protein 6.5 G/DL (6.4-8.3)
[2017-02-09 04:20] LABS: Lymphocytes 7 % (20-55); Platelet Estimate Normal; Segmented Neutrophils 86 % (50-85); Total Cells Counted 100
--- NOTE | 2017-02-09 05:58 | General Surgery Progress Note ---
Assessment and Plan (1) Fall Problem details: kidney laceration. <20% compression fractures. Status: Acute Assessment and plan: The patient has a persistent leukocytosis around 20,000 and his bilirubin and LFTs have gone up today. He appears to have an ileus. The patient has not been up walking around much. I encouraged him to try to get up some more today and increase his activity. We will also repeat films of the abdomen and chest due to the possibility of pneumonia and also the follow-up for the patient's ileus that he had on the CT scan on 02/06/2017. The patient does not appear ill overall and hopefully his ileus will improve once he gets up and moves around some more. We will follow his LFTs for now. There is no right upper quadrant tenderness on exam. Current Visit: Yes Subjective Patient reports: Present: still having pain, flatus, no bowel movement, afebrile. Absent: nausea, vomiting Exam - Constitutional Vitals: Period Temp Pulse Resp BP Sys/Peace Pulse Ox Last 24 Hr 97.4 F-99.5 F 90-118 15-20 130-146/75-86 95-99 General appearance: normal weight, no acute distress - Head Head exam: Present: normal inspection, normocephalic - Eye Eye exam: Present: EOMI. Absent: scleral icterus Pupils: Present: CAMI - ENT ENT exam: Present: normal exam Mouth exam: Present: normal external inspection, normal voice - Neck Neck exam: Present: normal inspection, trachea midline - Respiratory Respiratory exam: Present: clear to auscultation bilaterally. Absent: accessory muscle use, chest wall tenderness - Cardiovascular Cardiovascular exam: Present: RRR. Absent: systolic murmur, tachycardia - GI/Abdominal GI/Abdominal exam: Present: distended, hypoactive bowel sounds, soft. Absent: guarding, tenderness, rebound - Extremities Exam Extremities exam: Present: normal inspection, normal capillary refill - Back Exam Back exam: Present: normal inspection - Neurological Exam Neurological exam: Present: alert, oriented X3 Speech: Present: normal - Skin Skin exam: Present: normal color, warm Results - Labs CBC & BMP: 02/09/17 02:49 02/09/17 02:49 Quality Measures - VTE Contraindication to Pharmacological VTE Prophylaxis: High Risk of Bleeding
[2017-02-09] MEDS: PANTOPRAZOLE 40 MG TABLET PO SCH (08:44)
[2017-02-09] MEDS: VANCOMYCIN INJ 1,250 MG in SODIUM CHLORIDE 0.9% 250 ML IV SCH ×2 (08:44→16:39)
[2017-02-09] MEDS: SODIUM CHLORIDE 0.9% 1,000 ML IV SCH ×2 (08:48→17:49)
--- NOTE | 2017-02-09 10:38 | XRay Report ---
Portable chest Date: 02/09/2017 Clinical history: Cough, trauma Comparison: 02/08/2017 Technique: Portable AP sitting chest Findings: The heart is normal in size. No significant change in the diffuse pleural-parenchymal findings in the left upper lobe with post operative changes. Bullous emphysema with minimal reduction in the atelectasis/infiltration in the lower lung zones.. Stable upward retraction of the left hilum with degenerative changes. Prior rib fractures. 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 Reduced atelectasis/infiltration at the lung bases. PROCEDURE INTERPRETED AT [facility] DEPARTMENT OF RADIOLOGY Final Report Signed by: Dr. Sintia Houser
--- NOTE | 2017-02-09 10:42 | XRay Report ---
Exam: XR abdomen complete w decub Date: 02/09/2017 5:52 AM Comparison: 07/28/2015 Indication: Ileus Technique:[Supine and left lateral decubitus abdomen] Findings: Moderate gaseous distention of the bowel with no free air. Air-fluid levels on the decubitus film. Stable osseous structures. Impression: Moderate gaseous distention of the bowel which could be related to ileus but follow-up x-ray may be helpful for further evaluation. Minimal retained oral contrast in the right colon. PROCEDURE INTERPRETED AT [facility] DEPARTMENT OF RADIOLOGY Final Report Signed by: Dr. Sintia Houser
--- NOTE | 2017-02-09 16:07 | XRay Report ---
Exam: XR elbow 2V LT Date: 02/09/2017 1:20 PM Comparison: 02/22/2014 Indication: Pain after fall Technique:[AP and lateral left elbow] Findings: Soft tissue swelling with joint effusion. Acute comminuted minimally displaced fracture of the olecranon. Tiny olecranon osteophyte. Impression: Soft tissue swelling with joint effusion and acute minimally displaced fracture of the olecranon. Minimal DJD with tiny olecranon osteophyte. This report was called the patient's nurse, Yifan at 4:00 PM on 02/09/2017. PROCEDURE INTERPRETED AT [facility] DEPARTMENT OF RADIOLOGY Final Report Signed by: Dr. Sintia Houser
--- NOTE | 2017-02-09 16:09 | XRay Report ---
Exam: XR forearm LT Date: 02/09/2017 1:20 PM Comparison: Left elbow, 02/22/2014 Indication: Pain after fall Technique:[AP and lateral left forearm] Findings: Soft tissue swelling with elbow joint effusion. Acute minimally displaced fracture of the olecranon. The fracture extends to the articular surface. Minimal joint space narrowing with small osteophytes. Impression: Soft tissue swelling with joint effusion. Acute minimally displaced fracture of the olecranon. Minimal degenerative changes. This report was called the patient's nurse, Yifan at 4:00 PM on 02/09/2017. PROCEDURE INTERPRETED AT [facility] DEPARTMENT OF RADIOLOGY Final Report Signed by: Dr. Sintia Houser
--- NOTE | 2017-02-09 19:20 | Event Note ---
Patient had a left elbow x-ray today which showed an olecranon fracture that is minimally displaced but may be intra-articular. I have ordered a long-arm splint and have paged the orthopedic surgeon supervisor photocomposition to help take care of this problem and have also discussed this with the patient. This is a closed fracture in his hand is neurovascularly intact.
[2017-02-10] MEDS: VANCOMYCIN INJ 1,250 MG in SODIUM CHLORIDE 0.9% 250 ML IV SCH ×2 (01:05→08:58)
[2017-02-10 02:21] LABS: Basophils % 0.2 % (0.0-0.8); Eosinophils # 0.4 10*3/uL (0.0-0.87); Eosinophils % 3.3 % (0.00-10.9); Hemoglobin 8.4 GM/DL (14.0-18.0); Immature Granulocytes % 0.6 %; Immature Granulocytes Absolute 0.07 #; Lymphocytes # 1.1 10*3/uL (1.4-4.0); Lymphocytes % 10.2 % (21.2-54.2); Mean Corpuscular Hemoglobin 34 PG (27-34); Mean Corpuscular Volume 96.4 FL (87-102); Mean Platelet Volume 11.1 FL (9.6-12.0); Monocytes % 9.4 % (1.7-12.7); Neutrophils # 8.4 10*3/uL (1.4-7.4); Neutrophils % 76.3 % (38.7-73.9); Platelet Count 143 T/CUMM (130-400); Red Blood Count 2.49 MC/CUMM (3.8-5.5); Red Cell Distribution Width 12.1 % (9.3-17.3)
[2017-02-10] MEDS: PIPERACILLIN/TAZOBACTAM 3,375 MG in SODIUM CHLORIDE 0.9% 100 ML IV SCH ×3 (02:48→18:02)
[2017-02-10 02:53] LABS: Albumin 2.4 G/DL (3.4-5.0); Bilirubin,Direct 0.6 MG/DL (0.0-0.20); Bilirubin,Total 1.4 MG/DL (0.2-1.0); Calcium 7.7 MG/DL (8.5-10.1); Potassium 3.8 MMOL/L (3.5-5.1); Total Protein 5.8 G/DL (6.4-8.3)
[2017-02-10 04:12] LABS: Platelet Estimate Normal
[2017-02-10] MEDS: MORPHINE 2 MG/1 ML SYRINGE IV PRN ×3 (05:19→20:20)
[2017-02-10] MEDS: SODIUM CHLORIDE 0.9% 1,000 ML IV SCH (05:20)
--- NOTE | 2017-02-10 07:24 | Orthopedic Consult Note ---
History of Present Illness Chief complaint: Left elbow pain History of present illness: Mr. Barton is a 56 year old male who fell through a roof. He has been admitted with multiple injuries. Because of persistent pain and swelling involving his left upper extremity radiographs were obtained yesterday. They demonstrate that he has a displaced olecranon fracture. He has not had any prior history of problems with his left upper extremity. He denies numbness or tingling. Left upper extremity shows that he has moderate swelling involving his elbow. Skin, sensation, motors pulses are intact to his hand. There is no gross deformity. X-rays show a mildly displaced distally based olecranon fracture Impression left olecranon fracture Plan: I have advised open reduction fixation. I have discussed the rationale for the procedure. When the patient is optimized, I will proceed. Home Medications Medication Instructions Recorded Confirmed Type Albuterol Sulfate [Proair HFA] 2 puff INH DAILY PRN 07/28/15 02/05/17 History Aspirin [Ecotrin] 81 mg PO DAILY 04/25/16 02/05/17 History Ibuprofen [Ibuprofen] 800 mg PO Q6HR PRN 12/21/16 02/05/17 History Allergies Allergy/AdvReac Type Severity Reaction Status Date / Time No Known Allergies Allergy Verified 12/21/16 10:06 12 point system: reviewed and no additional remarkable complaints except as stated Medical,Surgical,& Family Hx - Medical History Cardio: No history of: CHF, CAD Psychological: History of: Psychiatric/Substance Abuse Tx (positive for cocaine) No history of: Depression Respiratory: History of: COPD, Lung Cancer (Left upper lobe surg) Musculoskeletal: History of: Musculoskeletal Problems (spinal, rib, sacral fractures after 15 foot fall) - Surgical History Thoracic Surgeries: Surgical HX of;: Lobectomy (left upper) - Family History Family History: Reports;: Family Hypertension (brother and sister) - Social History Smoking Status: Current every day smoker Frequency of Alcohol Use: None Type of Drug Use: Cocaine Exam - Constitutional Vitals: Period Temp Pulse Resp BP Sys/Peace Pulse Ox Last 24 Hr 98.5 F-100.1 F 82-112 18-20 130-154/77-92 95-100 Results - Labs CBC & BMP: 02/10/17 01:52 02/10/17 01:52 Assessment and Plan (1) Olecranon fracture Status: Acute Current Visit: Yes Qualifiers: Encounter type: initial encounter Fracture type: closed Laterality: left Qualified Code(s): S52.022A - Displaced fracture of olecranon process without intraarticular extension of left ulna, initial encounter for closed fracture
[2017-02-10] MEDS: PANTOPRAZOLE 40 MG TABLET PO SCH (08:57)
--- NOTE | 2017-02-10 09:27 | General Surgery Progress Note ---
Assessment and Plan (1) Fall Problem details: kidney laceration. <20% compression fractures. Status: Acute Assessment and plan: Labs are all improving. Patient is trying to get up and walk around. He is tolerating a regular diet. We will continue current treatment and once he is more stable he will need to have his olecranon fracture repaired prior to discharge if possible. Current Visit: Yes Subjective Patient reports: Present: no new complaints, feels better, pain is less, tolerating liquids well, flatus, bowel movement, afebrile Narrative: Patient is passing flatus and having bowel movements and no nausea or vomiting with his diet. He says his abdomen feels less bloated. Exam - Constitutional Vitals: Period Temp Pulse Resp BP Sys/Peace Pulse Ox Last 24 Hr 98.3 F-100.1 F 82-112 18-20 130-154/75-92 95-100 General appearance: normal weight, no acute distress - Head Head exam: Present: normal inspection, normocephalic - Eye Eye exam: Present: EOMI Pupils: Present: CAMI - ENT ENT exam: Present: normal exam Mouth exam: Present: normal external inspection, normal voice - Neck Neck exam: Present: normal inspection, trachea midline - Respiratory Respiratory exam: Present: clear to auscultation bilaterally. Absent: accessory muscle use, chest wall tenderness - Cardiovascular Cardiovascular exam: Present: RRR. Absent: systolic murmur, tachycardia - GI/Abdominal GI/Abdominal exam: Present: distended, hypoactive bowel sounds, soft. Absent: guarding, tenderness, rebound - Extremities Exam Extremities exam: Present: other (There is tenderness over the left elbow but this has been treated with a splint by Dr. Fatima) - Back Exam Back exam: Present: normal inspection - Neurological Exam Neurological exam: Present: alert, oriented X3 Speech: Present: normal - Skin Skin exam: Present: normal color, warm Results - Labs CBC & BMP: 02/10/17 01:52 02/10/17 01:52 - Diagnostic Findings Procedure: KUB x-ray: image reviewed by me (Persistent dilation mostly of the colon but no worsening) Quality Measures - VTE Contraindication to Pharmacological VTE Prophylaxis: High Risk of Bleeding
--- NOTE | 2017-02-10 10:32 | XRay Report ---
Exam: XR abdomen 2V Date: 02/10/2017 4:00 AM Comparison: 02/09/2017 Indication: Ileus Technique:[Supine abdomen] and left lateral decubitus Findings: Minimally progressive gaseous distention of the bowel especially the right colon with retained oral contrast. No free air is identified. No acute osseous findings. Impression: Findings which can be seen with progressive ileus but continued follow-up x-ray may be helpful if symptoms persist. No free air. PROCEDURE INTERPRETED AT [facility] DEPARTMENT OF RADIOLOGY Final Report Signed by: Dr. Sintia Houser
[2017-02-10] MEDS: VANCOMYCIN INJ 1,500 MG in SODIUM CHLORIDE 0.9% 500 ML IV SCH (22:06)
[2017-02-11] MEDS: PIPERACILLIN/TAZOBACTAM 3,375 MG in SODIUM CHLORIDE 0.9% 100 ML IV SCH ×3 (01:37→20:33)
[2017-02-11] MEDS: MORPHINE 2 MG/1 ML SYRINGE IV PRN ×4 (01:40→19:45)
[2017-02-11 05:08] LABS: Basophils % 0.3 % (0.0-0.8); Eosinophils # 0.4 10*3/uL (0.0-0.87); Eosinophils % 4.1 % (0.00-10.9); Hematocrit 25.9 VOL% (42.0-52.0); Hemoglobin 9.1 GM/DL (14.0-18.0); Immature Granulocytes % 0.7 %; Immature Granulocytes Absolute 0.07 #; Lymphocytes # 1.4 10*3/uL (1.4-4.0); Lymphocytes % 12.8 % (21.2-54.2); Mean Corpuscular HGB Conc 35.1 GM/DL (32-36); Mean Corpuscular Hemoglobin 33 PG (27-34); Mean Corpuscular Volume 94.5 FL (87-102); Mean Platelet Volume 10.4 FL (9.6-12.0); Monocytes # 1.4 10*3/uL (0.11-0.8); Monocytes % 13.5 % (1.7-12.7); Neutrophils # 7.2 10*3/uL (1.4-7.4); Neutrophils % 68.6 % (38.7-73.9); Platelet Count 204 T/CUMM (130-400); Red Blood Count 2.74 MC/CUMM (3.8-5.5); Red Cell Distribution Width 11.9 % (9.3-17.3); White Blood Count 10.5 T/CUMM (4-12)
[2017-02-11 05:48] LABS: Albumin 2.7 G/DL (3.4-5.0); Bilirubin,Total 1.4 MG/DL (0.2-1.0); Calcium 7.9 MG/DL (8.5-10.1); Osmolality,Calculated 269.1 MOS/KG (273-304); Potassium 3.5 MMOL/L (3.5-5.1); Total Protein 6.3 G/DL (6.4-8.3)
[2017-02-11] MEDS: VANCOMYCIN INJ 1,500 MG in SODIUM CHLORIDE 0.9% 500 ML IV SCH ×3 (05:52→23:57)
--- NOTE | 2017-02-11 09:14 | Orthopedic Progress Note ---
Assessment and Plan (1) Olecranon fracture Status: Acute Current Visit: Yes Qualifiers: Encounter type: initial encounter Fracture type: closed Laterality: left Qualified Code(s): S52.022A - Displaced fracture of olecranon process without intraarticular extension of left ulna, initial encounter for closed fracture Orthopedics - Subjective Interval history: Mr. Barton' left elbow is feeling better in the splint. He is currently tolerating a regular diet. Left upper extremity: Splint clean, dry and intact. Left hand is neurovascularly unchanged. Plan: Mr. Barton will require open reduction fixation of his left olecranon prior to discharge. I am currently awaiting general surgery clearance. Exam - Constitutional Vitals: Period Temp Pulse Resp BP Sys/Peace Pulse Ox Last 24 Hr 98.7 F-99.9 F 82-101 16-20 138-158/78-94 94-99 Results - Labs CBC & BMP: 02/11/17 04:41 02/11/17 04:41 Quality Measures - VTE Contraindication to Pharmacological VTE Prophylaxis: High Risk of Bleeding
[2017-02-11] MEDS: PANTOPRAZOLE 40 MG TABLET PO SCH (09:46)
--- NOTE | 2017-02-11 10:40 | General Surgery Progress Note ---
Assessment and Plan - Time spent with patient Time spent discussing smoking cessation with patient: 3 to 10 minutes (1) Fall Problem details: kidney laceration. <20% compression fractures. Status: Acute Assessment and plan: Patient doing well from a trauma standpoint. Tolerating diet, no pain. Awaiting ortho for repair. anticipate d/c soon after. Continue to encourage ambulation and pain management Current Visit: Yes Subjective Patient reports: Present: no new complaints, feels better, still having pain, flatus, bowel movement Exam - Constitutional Vitals: Period Temp Pulse Resp BP Sys/Peace Pulse Ox Last 24 Hr 98.7 F-99.9 F 82-101 16-20 138-158/78-94 94-99 General appearance: normal weight - Respiratory Respiratory exam: Present: clear to auscultation bilaterally - Cardiovascular Cardiovascular exam: Present: RRR - GI/Abdominal GI/Abdominal exam: Present: distended, soft. Absent: guarding, tenderness, rebound Results - Labs CBC & BMP: 02/11/17 04:41 02/11/17 04:41 Quality Measures - VTE Contraindication to Pharmacological VTE Prophylaxis: High Risk of Bleeding
--- NOTE | 2017-02-11 12:18 | Pain Management Progress Note ---
Assessment and Plan (1) Fracture of transverse process of lumbar vertebra Status: Acute Assessment and plan: The lumbar transverse process fractures will be treated conservatively with the lumbar bracing 02/08 plan is to continue current pain treatment regimen I am hesitant to increase pain medications and fear of worsening ileus 02/11 continue current medications for pain Current Visit: Yes Qualifiers: Encounter type: initial encounter (2) Fracture of thoracic vertebra, compression Status: Acute Assessment and plan: Patient has acute T2-3 T3 compression fracture we will do conservative treatment for about 6-8 weeks before kyphoplasty Current Visit: Yes Qualifiers: Encounter type: initial encounter Pain - Subjective Interval history: Patient is doing better with pain control reports that the abdominal pain is getting better and ileus may be resolving. Patient is scheduled to have left arm surgery soon Exam - Constitutional Vitals: Period Temp Pulse Resp BP Sys/Peace Pulse Ox Last 24 Hr 98.5 F-99.9 F 82-98 16-20 136-158/68-94 93-99 General appearance: mild distress - Head Head exam: Present: normal inspection - Eye Eye exam: Present: EOMI Pupils: Present: CAMI - ENT ENT exam: Present: normal exam Ear exam: Present: intact Mouth exam: Present: normal external inspection - Neck Neck exam: Present: normal inspection - Respiratory Respiratory exam: Present: clear to auscultation bilaterally, chest wall tenderness - Cardiovascular Cardiovascular exam: Present: RRR - GI/Abdominal GI/Abdominal exam: Present: distended, hypoactive bowel sounds - Expanded Left Upper Extremity Upper Arm exam: Present: normal inspection Forearm wrist exam: Present: deformity Hand wrist exam: Present: normal inspection Neuro motor exam: Present: moves all eqally Neurosensory exam: Present: intact - Back Exam Back exam: Present: vertebral tenderness - Neurological Exam Neurological exam: Present: abnormal gait - Skin Skin exam: Present: normal color Results - Labs CBC & BMP: 02/11/17 04:41 02/11/17 04:41 Lab Results: I have reviewed the past 24 hour labs Quality Measures - VTE Contraindication to Pharmacological VTE Prophylaxis: High Risk of Bleeding
--- NOTE | 2017-02-11 13:36 | Event Note ---
Mr Barton has been cleared for surgery from Dr Ramirez. I've discussed risks and benefits of surgery with the patient and his . All questions answered.
[2017-02-11] MEDS ORDERED: BISACODYL 10 MG SUPP RECTAL ONE (16:52)
[2017-02-11] MEDS ORDERED: BISACODYL 5 MG TABLET PO PRN (16:52)
[2017-02-11] MEDS: oxyCODONE/ACETAMINOPHEN 5-325 MG TABLET PO PRN (17:45)
--- NOTE | 2017-02-11 18:19 | EKG Report ---
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
[2017-02-11] MEDS: ACETAMINOPHEN 325 MG TABLET PO PRN (20:33)
[2017-02-12] MEDS: MORPHINE 2 MG/1 ML SYRINGE IV PRN ×3 (02:02→21:38)
[2017-02-12] MEDS: PIPERACILLIN/TAZOBACTAM 3,375 MG in SODIUM CHLORIDE 0.9% 100 ML IV SCH ×3 (02:03→18:35)
--- NOTE | 2017-02-12 06:16 | Pain Management Progress Note ---
Assessment and Plan (1) Fracture of transverse process of lumbar vertebra Status: Acute Assessment and plan: The lumbar transverse process fractures will be treated conservatively with the lumbar bracing 02/08 plan is to continue current pain treatment regimen I am hesitant to increase pain medications and fear of worsening ileus 02/11 continue current medications for pain 02/12 maggie need IV opioids after surgery today Current Visit: Yes Qualifiers: Encounter type: initial encounter (2) Fracture of thoracic vertebra, compression Status: Acute Assessment and plan: Patient has acute T2-3 T3 compression fracture we will do conservative treatment for about 6-8 weeks before kyphoplasty Current Visit: Yes Qualifiers: Encounter type: initial encounter Pain - Subjective Interval history: pain is reasonably controlled and scheduled for orthopedic surgery this am . Exam - Constitutional Vitals: Period Temp Pulse Resp BP Sys/Peace Pulse Ox Last 24 Hr 98.0 F-100.1 F 74-97 18-18 133-154/68-95 93-100 General appearance: no acute distress - Head Head exam: Present: normal inspection - Eye Eye exam: Present: EOMI Pupils: Present: CAMI - ENT ENT exam: Present: normal exam Ear exam: Present: intact Mouth exam: Present: normal external inspection - Neck Neck exam: Present: normal inspection - Respiratory Respiratory exam: Present: clear to auscultation bilaterally, chest wall tenderness - Cardiovascular Cardiovascular exam: Present: RRR - GI/Abdominal GI/Abdominal exam: Present: distended, hypoactive bowel sounds - Expanded Left Upper Extremity Upper Arm exam: Present: tenderness Forearm wrist exam: Present: normal inspection Hand wrist exam: Present: normal inspection Neurosensory exam: Present: median nerve intact Vascular: Present: normal capillary refill - Back Exam Back exam: Present: vertebral tenderness - Neurological Exam Neurological exam: Present: abnormal gait - Skin Skin exam: Present: normal color Results - Labs CBC & BMP: 02/11/17 04:41 02/11/17 04:41 Lab Results: I have reviewed the past 24 hour labs Quality Measures - VTE Contraindication to Pharmacological VTE Prophylaxis: High Risk of Bleeding
[2017-02-12 06:46] LABS: Basophils % 0.4 % (0.0-0.8); Eosinophils # 0.5 10*3/uL (0.0-0.87); Eosinophils % 5.5 % (0.00-10.9); Hematocrit 27.3 VOL% (42.0-52.0); Hemoglobin 9.5 GM/DL (14.0-18.0); Immature Granulocytes % 1.6 %; Immature Granulocytes Absolute 0.15 #; Lymphocytes # 1.3 10*3/uL (1.4-4.0); Lymphocytes % 13.8 % (21.2-54.2); Mean Corpuscular HGB Conc 34.8 GM/DL (32-36); Mean Corpuscular Hemoglobin 33 PG (27-34); Mean Corpuscular Volume 95.1 FL (87-102); Mean Platelet Volume 9.8 FL (9.6-12.0); Monocytes # 1.2 10*3/uL (0.11-0.8); Monocytes % 13.2 % (1.7-12.7); Neutrophils % 65.5 % (38.7-73.9); Platelet Count 260 T/CUMM (130-400); Red Blood Count 2.87 MC/CUMM (3.8-5.5); Red Cell Distribution Width 12.1 % (9.3-17.3); White Blood Count 9.1 T/CUMM (4-12)
--- NOTE | 2017-02-12 07:25 | Orthopedic Progress Note ---
Assessment and Plan (1) Olecranon fracture Status: Acute Current Visit: Yes Qualifiers: Encounter type: initial encounter Fracture type: closed Laterality: left Qualified Code(s): S52.022A - Displaced fracture of olecranon process without intraarticular extension of left ulna, initial encounter for closed fracture Orthopedics - Subjective Interval history: Comfortable. He is ready to proceed with surgery. Left upper extremity splinted. Left hand is neurovascularly unchanged. Plan: Proceed with open reduction fixation left olecranon later today. All questions were answered. Exam - Constitutional Vitals: Period Temp Pulse Resp BP Sys/Peace Pulse Ox Last 24 Hr 98.0 F-100.1 F 74-97 18-18 133-154/68-95 93-100 Results - Labs CBC & BMP: 02/12/17 06:38 02/11/17 04:41 Quality Measures - VTE Contraindication to Pharmacological VTE Prophylaxis: High Risk of Bleeding
[2017-02-12 07:27] LABS: Albumin 2.8 G/DL (3.4-5.0); Bilirubin,Total 1.4 MG/DL (0.2-1.0); Calcium 8.4 MG/DL (8.5-10.1); Osmolality,Calculated 277.4 MOS/KG (273-304); Potassium 3.9 MMOL/L (3.5-5.1); Total Protein 6.7 G/DL (6.4-8.3)
[2017-02-12] MEDS: VANCOMYCIN INJ 1,500 MG in SODIUM CHLORIDE 0.9% 500 ML IV SCH ×2 (09:24→22:36)
[2017-02-12] MEDS ORDERED: HYDROmorphone 2 MG/1 ML VIAL ONE ×2 (10:41→12:42)
[2017-02-12] MEDS ORDERED: HYDROmorphone 2 MG/1 ML VIAL IV ONE (10:46)
[2017-02-12] MEDS ORDERED: GLYCOPYRROLATE 0.4 MG/2 ML VIAL ONE (11:00)
[2017-02-12] MEDS ORDERED: LIDOCAINE 1% 5 ML VIAL ONE (11:00)
[2017-02-12] MEDS ORDERED: PROPOFOL 200 MG/20 ML VIAL IV ONE (11:00)
[2017-02-12] MEDS ORDERED: ONDANSETRON 4 MG/2 ML VIAL ONE ×2 (11:00→12:42)
[2017-02-12] MEDS ORDERED: NEOSTIGMINE 10 MG/10 ML VIAL ONE (11:00)
[2017-02-12] MEDS: LACTATED RINGERS 1,000 ML IV SCH ×2 (11:00→12:00)
[2017-02-12] MEDS ORDERED: PHENYLEPHRINE 1 MG/10 ML SYRINGE IV ONE (11:00)
[2017-02-12] MEDS ORDERED: DEXAMETHASONE 10 MG/1 ML VIAL ONE (11:00)
[2017-02-12] MEDS ORDERED: ROCURONIUM 100 MG/10 ML VIAL IV ONE (11:00)
[2017-02-12] MEDS: PANTOPRAZOLE 40 MG TABLET PO SCH (11:21)
[2017-02-12] MEDS ORDERED: BACITRACIN OINT 0.9 GM PACK TOP ONE (11:56)
--- NOTE | 2017-02-12 12:15 | Operative Note ---
Date of procedure: 02/12/17 Procedure: DIAGNOSIS: Left displaced olecranon fracture PROCEDURE: Open reduction internal fixation left displaced olecranon fracture SURGEON: Kushal ANESTHESIA: General PROCEDURE and FINDINGS: After adequate anesthesia was induced, the patient's left upper extremities prepped and draped in usual sterile fashion. His limb was exsanguinated with Esmarch. Tourniquet was inflated to 250 mmHg. Estimated tourniquet time was 32 minutes. Was released during dressing application. A dorsal longitudinal incision was made. The interval between ECU and FCU was utilized. The fracture was identified reduced. A lag screw was placed. A 5 hole reconstruction plate was applied in compression. The patient had full elbow and forearm rotation. Image intensification demonstrated adequate reduction. The wound was closed deep with 0 Vicryl figure -of-eight suture. Superficially, the wound was closed with interrupted buried 3 -0 Vicryl sutures. Skin was closed with rangel. Bacitracin, sterile dressing and long-arm posterior molded splint was applied. The patient was extubated and transferred recovery room in stable condition. Surgeon / Physician: Filippo Fatima Jr. Results - Labs CBC & BMP: 02/12/17 06:38 02/12/17 06:38 Discharge Plan - Discharge Medications No Action Albuterol Sulfate [Proair HFA] 2 puff INH DAILY PRN PRN Reason: Shortness Of Breath Aspirin [Ecotrin] 81 mg PO DAILY Ibuprofen [Ibuprofen] 800 mg PO Q6HR PRN PRN Reason: Pain - Follow Up or Referral - Forms/Instructions
--- NOTE | 2017-02-12 12:24 | Anesthesia Post-Op ---
Anesthesia Post OP - Post Ansesthetic Evaluation Patient seen in post op: Yes Resp: within normal limits CV: within normal limits Mental: within normal limits Temp: within normal limits [id number]-[id number]: within normal limits Nausea and Vomiting: within normal limits Pain: within normal limits
[2017-02-12] MEDS ORDERED: SEVOFLURANE 1 UNIT/15 MINUTE INH ONE (12:27)
[2017-02-12] MEDS ORDERED: LACTATED RINGERS 1,000 ML IV ONE (12:27)
[2017-02-12] MEDS ORDERED: fentaNYL 100 MCG/2 ML VIAL ONE (12:27)
[2017-02-12] MEDS ORDERED: MIDAZOLAM 2 MG/2 ML VIAL ONE (12:27)
[2017-02-12] MEDS ORDERED: ONDANSETRON 4 MG/2 ML VIAL IV PRN (12:41)
[2017-02-12] MEDS ORDERED: HYDROmorphone 2 MG/1 ML VIAL IV PRN (12:41)
[2017-02-12] MEDS: oxyCODONE/ACETAMINOPHEN 5-325 MG TABLET PO PRN ×2 (14:49→18:20)
--- NOTE | 2017-02-12 14:57 | XRay Report ---
Exam: XR elbow 3V LT Date: 02/12/2017 12:00 AM Comparison: 02/09/2017 Indication: ORIF left elbow Technique:[Fluoroscopy time is 7 seconds. 3 films were obtained.] Findings: Interval insertion of a metallic compression plate and 5 screws. 1 of the screws projects at the level of the fracture of the olecranon. The fracture is in satisfactory position and alignment for healing. Impression: Satisfactory internal fixation of the fractured of the olecranon. PROCEDURE INTERPRETED AT [facility] DEPARTMENT OF RADIOLOGY Final Report Signed by: Dr. Sintia Houser
[2017-02-12] MEDS ORDERED: MAGNESIUM CITRATE 300 ML BOTTLE PO ONE (15:42)
--- NOTE | 2017-02-12 15:55 | Hospitalist Progress Note ---
Assessment and Plan - Time spent with patient Time spent with patient: Less than 30 minutes (1) Elevated transaminase level Status: Acute Assessment and plan: Mr. Barton is a 56-year-old -Congolese male with a history of lung cancer , COPD admitted by Dr. Ramirez on 02/05/2017 status post falling through a roof. Dr. Ramirez will see and examined patient and further recommendations to follow. fall/Right renal injury--CT shows a perfusion injury estimating 50% of the kidney or more. Dr. Suggs from urology is following. He feels this is more of a vascular thrombosis injury versus a renal laceration. He recommended bed rest and observation. Patient may lose half his kidney but will only be able to tell with time. Patient is voiding normally and his urine is clear. He has no complaints of abdominal or flank pain at this time. Fall/left displaced olecranon fracture--Dr. Fatima took the patient to the OR this morning for ORIF of the left elbow. Patient's pain is controlled on p.o. medication and his dressing is clean and dry. fall/compression and transverse process fractures--patient has acute lumbar transverse process fractures and T2/T3 compression fracture. Dr. Patten from pain management is following and recommends conservative treatment with bracing for 6-8 weeks followed by kyphoplasty if needed. Patient is tolerating p.o. Percocets at this time and has not needed IV for breakthrough today. Fall/immobility--due to patient's multiple fractures and pain with mobility, social workers are working on hopeful TMR placement for in the morning. Patient cannot get out of the bed without help from nursing or PT. Elevated transaminases--patient had elevated bilirubin of 2.2 and mildly elevated AST/ALT on admission most likely shock liver due to fall. These levels are decreasing and his bilirubin is stable at 1.4 today. Recheck labs in the morning. Pancreatitis--this is also most likely due to the trauma. Patient has had rising lipase with yesterday's value at 1061. Will recheck his labs in the morning. Patient has no complaints of abdominal pain even with palpation or nausea with eating. Current Visit: Yes (2) Pancreatitis Status: Acute Current Visit: Yes (3) Fractured right kidney Status: Acute Current Visit: Yes (4) Fall Problem details: kidney laceration. <20% compression fractures. Status: Acute Current Visit: Yes (5) Fracture of transverse process of lumbar vertebra Status: Acute Current Visit: Yes Qualifiers: Encounter type: initial encounter (6) Fracture of thoracic vertebra, compression Status: Acute Current Visit: Yes Qualifiers: Encounter type: initial encounter (7) Olecranon fracture Status: Acute Current Visit: Yes Qualifiers: Encounter type: initial encounter Fracture type: closed Laterality: left Qualified Code(s): S52.022A - Displaced fracture of olecranon process without intraarticular extension of left ulna, initial encounter for closed fracture (8) Physical debility Status: Acute Current Visit: Yes Hospitalist: Subjective Interval history: Patient feels okay. He has no complaints. He is now status post ORIF of the left elbow. His pain is controlled and his dressing is clean and dry. He does have some mild distention of his abdomen but he is tolerating a diet. He has no complaints of abdominal pain. He agrees he thinks he needs to go to rehab because he cannot get out of the bed without help from physical therapy. Exam - Constitutional Vitals: Period Temp Pulse Resp BP Sys/Peace Pulse Ox Last 24 Hr 97.6 F-100.1 F 73-97 16-20 125-163/64-92 93-99 Exam: 56-year-old -Congolese male, no acute distress, alert and oriented Chest clear CV regular rate and rhythm Abdomen mildly distended, nontender, hypoactive bowel sounds Extremities with no pedal edema, right arm dressing clean and dry Results - Labs CBC & BMP: 02/12/17 06:38 02/12/17 06:38 Lab Results: I have reviewed the past 24 hour labs Quality Measures - VTE Contraindication to Pharmacological VTE Prophylaxis: High Risk of Bleeding
--- NOTE | 2017-02-12 16:21 | General Surgery Progress Note ---
Assessment and Plan - Time spent with patient Time spent with patient: Less than 30 minutes (1) Elevated transaminase level Status: Acute Assessment and plan: Mr. Barton is a 56-year-old -[place] male with a history of lung cancer , COPD admitted by Dr. Ramirez on 02/05/2017 status post falling through a roof. Dr. Ramirez will see and examined patient and further recommendations to follow. fall/Right renal injury--CT shows a perfusion injury estimating 50% of the kidney or more. Dr. Suggs from urology is following. He feels this is more of a vascular thrombosis injury versus a renal laceration. He recommended bed rest and observation. Patient may lose half his kidney but will only be able to tell with time. Patient is voiding normally and his urine is clear. He has no complaints of abdominal or flank pain at this time. Fall/left displaced olecranon fracture--Dr. Fatima took the patient to the OR this morning for ORIF of the left elbow. Patient's pain is controlled on p.o. medication and his dressing is clean and dry. fall/compression and transverse process fractures--patient has acute lumbar transverse process fractures and T2/T3 compression fracture. Dr. Patten from pain management is following and recommends conservative treatment with bracing for 6-8 weeks followed by kyphoplasty if needed. Patient is tolerating p.o. Percocets at this time and has not needed IV for breakthrough today. Fall/immobility--due to patient's multiple fractures and pain with mobility, social workers are working on hopeful TMR placement for in the morning. Patient cannot get out of the bed without help from nursing or PT. Elevated transaminases--patient had elevated bilirubin of 2.2 and mildly elevated AST/ALT on admission most likely shock liver due to fall. These levels are decreasing and his bilirubin is stable at 1.4 today. Recheck labs in the morning. Pancreatitis--this is also most likely due to the trauma. Patient has had rising lipase with yesterday's value at 1061. Will recheck his labs in the morning. Patient has no complaints of abdominal pain even with palpation or nausea with eating. Current Visit: Yes (2) Pancreatitis Status: Acute Current Visit: Yes (3) Fractured right kidney Status: Acute Current Visit: Yes (4) Fall Problem details: kidney laceration. <20% compression fractures. Status: Acute Current Visit: Yes (5) Fracture of transverse process of lumbar vertebra Status: Acute Current Visit: Yes Qualifiers: Encounter type: initial encounter (6) Fracture of thoracic vertebra, compression Status: Acute Current Visit: Yes Qualifiers: Encounter type: initial encounter (7) Olecranon fracture Status: Acute Current Visit: Yes Qualifiers: Encounter type: initial encounter Fracture type: closed Laterality: left Qualified Code(s): S52.022A - Displaced fracture of olecranon process without intraarticular extension of left ulna, initial encounter for closed fracture (8) Physical debility Status: Acute Current Visit: Yes Subjective Narrative: Patient feels okay today, he has no new complaints. He is now status post ORIF of the left elbow. His pain is controlled and his dressing is clean and dry. He does have some mild distention of his abdomen but he is tolerating a diet. He has no complaints of abdominal pain. He agrees he needs to go to rehab because he cannot get out of bed without help from physical therapy. Exam - Constitutional Vitals: Period Temp Pulse Resp BP Sys/Peace Pulse Ox Last 24 Hr 97.6 F-100.1 F 73-97 16-20 125-163/64-92 93-99 Exam: 56-year-old -[place] male, no acute distress, alert and oriented Chest clear CV regular rate and rhythm Abdomen mildly distended, nontender, hypoactive bowel sounds Extremities with no pedal edema, left arm dressing is clean and dry Results - Labs CBC & BMP: 02/12/17 06:38 02/12/17 06:38 Lab Results: I have reviewed the past 24 hour labs Quality Measures - VTE Contraindication to Pharmacological VTE Prophylaxis: High Risk of Bleeding
--- NOTE | 2017-02-12 17:47 | Orthopedic Progress Note ---
Assessment and Plan (1) Olecranon fracture Status: Acute Current Visit: Yes Qualifiers: Encounter type: initial encounter Fracture type: closed Laterality: left Qualified Code(s): S52.022A - Displaced fracture of olecranon process without intraarticular extension of left ulna, initial encounter for closed fracture Orthopedics - Subjective Interval history: Postop check. Mr. Barton is not having too much issues with his left arm. He is complaining about left inguinal pain. He sitting comfortably in his chair. His left upper extremities neurovascularly unchanged. CT scan of his pelvis was reviewed. It demonstrates a superior pubic rami fracture and a very subtle inferior rami fracture. Impression: Left superior and inferior pubic rami fractures Plan: Patient can continue to be weightbearing as tolerated. Continue splint for his left upper extremity. Exam - Constitutional Vitals: Period Temp Pulse Resp BP Sys/Peace Pulse Ox Last 24 Hr 97.6 F-100.1 F 73-97 16-20 125-163/64-92 93-100 Results - Labs CBC & BMP: 02/12/17 06:38 02/12/17 06:38 Quality Measures - VTE Contraindication to Pharmacological VTE Prophylaxis: High Risk of Bleeding
[2017-02-12] MEDS: BISACODYL 5 MG TABLET PO SCH ×2 (18:19→23:46)
[2017-02-13] MEDS: PIPERACILLIN/TAZOBACTAM 3,375 MG in SODIUM CHLORIDE 0.9% 100 ML IV SCH ×2 (02:04→12:47)
[2017-02-13] MEDS: oxyCODONE/ACETAMINOPHEN 5-325 MG TABLET PO PRN ×2 (04:01→10:17)
[2017-02-13 05:48] LABS: Basophils % 0.1 % (0.0-0.8); Hematocrit 25.6 VOL% (42.0-52.0); Immature Granulocytes % 1.1 %; Immature Granulocytes Absolute 0.12 #; Lymphocytes % 9.5 % (21.2-54.2); Mean Corpuscular HGB Conc 35.2 GM/DL (32-36); Mean Corpuscular Hemoglobin 33 PG (27-34); Mean Corpuscular Volume 93.8 FL (87-102); Mean Platelet Volume 10.2 FL (9.6-12.0); Monocytes # 0.9 10*3/uL (0.11-0.8); Neutrophils # 8.9 10*3/uL (1.4-7.4); Neutrophils % 81.3 % (38.7-73.9); Platelet Count 280 T/CUMM (130-400); Red Blood Count 2.73 MC/CUMM (3.8-5.5); Red Cell Distribution Width 12.1 % (9.3-17.3); White Blood Count 10.9 T/CUMM (4-12)
[2017-02-13] MEDS: BISACODYL 5 MG TABLET PO SCH ×2 (06:15→13:22)
--- NOTE | 2017-02-13 06:16 | Pain Management Progress Note ---
Assessment and Plan (1) Fracture of transverse process of lumbar vertebra Status: Acute Assessment and plan: The lumbar transverse process fractures will be treated conservatively with the lumbar bracing 02/08 plan is to continue current pain treatment regimen I am hesitant to increase pain medications and fear of worsening ileus 02/11 continue current medications for pain 02/12 maggie need IV opioids after surgery today 02/13 [address] with [facility] unit transfer when stable Current Visit: Yes Qualifiers: Encounter type: initial encounter (2) Fracture of thoracic vertebra, compression Status: Acute Assessment and plan: Patient has acute T2-3 T3 compression fracture we will do conservative treatment for about 6-8 weeks before kyphoplasty Current Visit: Yes Qualifiers: Encounter type: initial encounter Pain - Subjective Interval history: Patient is stable status post left arm surgery yesterday. I agree with transferring to rehab unit Exam - Constitutional Vitals: Period Temp Pulse Resp BP Sys/Peace Pulse Ox Last 24 Hr 97.6 F-98.8 F 63-92 16-20 125-163/62-94 93-100 General appearance: no acute distress - Head Head exam: Present: normal inspection - Eye Eye exam: Present: EOMI Pupils: Present: CAMI - ENT ENT exam: Present: normal exam Ear exam: Present: intact Mouth exam: Present: normal external inspection - Neck Neck exam: Present: normal inspection - Respiratory Respiratory exam: Present: clear to auscultation bilaterally - Cardiovascular Cardiovascular exam: Present: RRR - GI/Abdominal GI/Abdominal exam: Present: normal bowel sounds - Expanded Left Upper Extremity Upper Arm exam: Present: tenderness Forearm wrist exam: Present: normal inspection Hand wrist exam: Present: normal inspection Neuro motor exam: Present: moves all eqally Neurosensory exam: Present: intact Vascular: Present: normal capillary refill - Back Exam Back exam: Present: vertebral tenderness - Neurological Exam Neurological exam: Present: abnormal gait - Skin Skin exam: Present: normal color Results - Labs CBC & BMP: 02/13/17 05:30 02/12/17 06:38 Lab Results: I have reviewed the past 24 hour labs Quality Measures - VTE Contraindication to Pharmacological VTE Prophylaxis: High Risk of Bleeding
[2017-02-13 06:26] LABS: Albumin 2.7 G/DL (3.4-5.0); Bilirubin,Total 1.5 MG/DL (0.2-1.0); Calcium 8.9 MG/DL (8.5-10.1); Osmolality,Calculated 275.7 MOS/KG (273-304); Potassium 4.4 MMOL/L (3.5-5.1); Total Protein 6.6 G/DL (6.4-8.3)
--- NOTE | 2017-02-13 08:05 | Orthopedic Progress Note ---
Assessment and Plan (1) Olecranon fracture Status: Acute Current Visit: Yes Qualifiers: Encounter type: initial encounter Fracture type: closed Laterality: left Qualified Code(s): S52.022A - Displaced fracture of olecranon process without intraarticular extension of left ulna, initial encounter for closed fracture Orthopedics - Subjective Interval history: Elbow is doing well. Still has groin pain, mild. LLE no pain with rom hip. NV ok. LUE nv ok. splint intact s/p orif left olecranon. L Inf/sup pubic rami fxs Discussed finding of CT scan. WBAT with [facility]miwalker. f/u appt 7 to 10 days. Keep splint clean, dry and intact. ok for discharge anytime with me. Exam - Constitutional Vitals: Period Temp Pulse Resp BP Sys/Peace Pulse Ox Last 24 Hr 97.6 F-98.7 F 63-92 16-20 125-163/62-94 94-100 Results - Labs CBC & BMP: 02/13/17 05:30 02/13/17 05:30 Quality Measures - VTE Contraindication to Pharmacological VTE Prophylaxis: High Risk of Bleeding Specialty Discharge - Follow Up or Referrals Follow up with: Filippo Fatima Jr., MD [Physician] - (10-14 days)
--- NOTE | 2017-02-13 10:08 | Discharge Summary ---
Hospital Course - Hospital Course Hospital Course: Mr. Barton is a 56-year-old -[place] male with history of lung cancer and COPD admitted by Dr. Ramirez on 02/05/2017 after falling through his roof. Patient had opiates, cocaine, and marijuana in his system at the time of his fall. CT scan showed a right renal injury with a perfusion injury estimating 50 % of the kidney or more. Dr. Justin Suggs from urology saw the patient and felt it was more a thrombosis injury versus renal laceration. He recommended bed rest and observation. Patient has no complaints of abdominal or flank pain at this time. Will check with Dr. Suggs on follow-up in his clinic. Patient was also found to have a lumbar transverse process fractures and T2/T3 compression fractures. Dr. Borden from pain management followed the patient and recommended conservative treatment with bracing for 6-8 weeks followed by kyphoplasty if needed. Patient's pain is controlled at this time but he is still having some issues with immobility requiring physical therapy. Will have the patient follow-up with Dr. Borden as needed. Patient also had a left olecranon fracture and underwent ORIF by Dr. Fatima on 02/12/2017. He was also found to have left inferior/superior pubic rami fractures that will be managed conservatively. Patient will be weightbearing as tolerated with a hemiwalker and follow-up with Dr. Fatima in 7-10 days. The splint is to be kept clean and dry and intact. Patient was found to have some elevated transaminases and lipase most likely due to his trauma. These levels are coming down and patient has been asymptomatic. Patient will need to follow-up with Dr. Ramirez in approximately 3 weeks. Patient is being transferred to [facility] rehab today for physical and occupational therapy. Patient's case was discussed with Dr. Ramirez, Dr. Suggs, Dr. Fatima, Dr. Borden, patient, nursing, and keycase assembler. Care coordination, chart review, and completed discharge paperwork took approximately 41 minutes. - Time spent with patient Time with patient DS: Greater than 30 minutes Diagnosis - Discharge Diagnosis (1) Elevated transaminase level Status: Resolved (2) Pancreatitis Status: Resolved (3) Fractured right kidney Status: Resolved (4) Fall Status: Resolved (5) Fracture of transverse process of lumbar vertebra Status: Resolved (6) Fracture of thoracic vertebra, compression Status: Resolved (7) Olecranon fracture Status: Resolved (8) Physical debility Status: Resolved Specialty Discharge - Follow Up or Referrals Follow up with: Filippo Fatima Jr., MD [Physician] - 02/26/17 8:45 am (10-14 days) Discharge Plan - Discharge Data Disposition: Disch/Xfer-Ip Rehab Fac Condition at Discharge: Stable Discharge Diet: advance to your usual diet Activity: as per physical therapy Hygiene: keep area(s) dry Weight Bearing at Discharge: weight bear as tolerated Driving: not until seen by doctor Contact your physician if you experience:: fever over 101, Redness or swelling - Discharge Medications New Bisacodyl Tab [Dulcolax Tab] 10 mg PO Q6HR tablet Pantoprazole Tab [Protonix Tab] 40 mg PO DAILY tablet Acetaminophen Tab [Tylenol Tab] 650 mg PO Q6H PRN tablet PRN Reason: Pain Mild (1-3) And/Or Fever oxyCODONE/ACETAMINOPHEN 5-325 [Percocet 5-325] 1 - 2 tablet PO Q4H PRN #30 tablet PRN Reason: Pain Moderate To Severe (4-10) Continue Albuterol Sulfate [Proair HFA] 2 puff INH DAILY PRN PRN Reason: Shortness Of Breath Aspirin [Ecotrin] 81 mg PO DAILY Ibuprofen 800 mg PO Q6HR PRN PRN Reason: Pain - Follow Up or Referral Follow Up: Filippo Fatima Jr., MD [Physician] - 02/26/17 8:45 am (10-14 days) Derek Ramirez MD [Physician] - (3wks ) Jarett Borden MD [Physician] - (prn ) Justin Suggs MD [Physician] - (6wks) - Forms/Instructions Instructions: Pelvic Fracture (DC), Rib Fracture (DC), Vertebral Compression Fracture (DC), Elbow Fracture in Adults, Oven Unloader (GEN) Exam - Constitutional Vitals: Period Temp Pulse Resp BP Sys/Peace Pulse Ox Last 24 Hr 97.6 F-98.7 F 63-92 16-20 125-163/62-94 94-100 Exam: 56-year-old -[place] male, no acute distress, alert and oriented Chest clear CV regular rate and rhythm Abdomen soft nontender Extremities with no edema, left arm splint and dressing clean dry and intact Discharge Results Labs on day of discharge: Labs from last 24 hours 02/13/17 02/13/17 05:30 05:30 WBC 10.9 RBC 2.73 L Hgb 9.0 L Hct 25.6 L MCV 93.8 MCH 33 MCHC 35.2 RDW 12.1 Plt Count 280 MPV 10.2 Neut % (Auto) 81.3 H Lymph % (Auto) 9.[address] [place] % (Auto) 8.0 Eos % (Auto) 0.0 Baso % (Auto) 0.1 Neut # (Auto) 8.9 H Lymph # (Auto) 1.[address] [place] # (Auto) 0.9 H Eos # (Auto) 0.0 Baso # (Auto) 0.0 Immature Gran % 1.1 Nucleated RBC % 0.0 Immature Gran # 0.12 Nucleated RBCs # 0.00 Sodium 138 Potassium 4.4 Chloride 104 Carbon Dioxide 26 Anion Gap 12.4 BUN 12 Creatinine 0.80 GFR Calculation 132 BUN/Creatinine Ratio 15.00 Glucose 122 H Calculated Osmolality 275.7 Calcium 8.9 Total Bilirubin 1.50 H AST 93 H ALT 92 H Alkaline Phosphatase 89 Total Protein 6.6 Albumin 2.7 L Globulin 3.9 H Albumin/Globulin Ratio 0.6 L Amylase 55 Lipase 613.0 H D DS: Provider Date of admission: 02/06/17 12:10 Primary care physician: . 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 TAYLOR Date Notified: 02/07/17 Time Notified: 10:23 Consult Notification Comment: DR. BORDEN CALLED AT 1030, 02/07/17, AND SAID HE WILL BE SEEING PATIENT. 02/08/17 14:28 Consult to Occupational Therapy [CONS] Routine Reason for Occupational Therapy: Evaluate and Treat Consult Comment: Evaluate and Treat for TMR/Swing Bed placement. 02/08/17 15:06 Consult to Physical Therapy [CONS] Routine Reason for Physical Therapy: Gait Training Evaluate and Treat Consult Comment: please see on weekend 02/09/17 05:59 Consult to Pharmacy [CONS] Routine Reason for Pharmacy Consult: Dose/Manage Vancomycin 02/09/17 19:20 Consult to Physician [CONS] Routine Comment: left olecranon fracture Consulting Provider: Filippo Fatima Jr. 02/12/17 16:11 Consult to Case Mgmt/Social Srvs [CONS] Routine Reason for Case Mgmt/Social Srvs: Rehab Discharging clinician: HESHAM Cunningham Expected date of discharge: 02/13/17
[2017-02-13] MEDS: VANCOMYCIN INJ 1,500 MG in SODIUM CHLORIDE 0.9% 500 ML IV SCH (10:18)
[2017-02-13] MEDS: PANTOPRAZOLE 40 MG TABLET PO SCH (10:18)
[2017-02-13 11:37] VITALS: BP 141/78
== END 2017-02-13 15:00 | DRG 951 ==
LOC: EDUNIT# → N.EDINP 07:55 → N.ED 07:55 → N.3E 12:14
PROVIDERS: ADMIT Physician Assistant; ATTEND Surgery

== ENCOUNTER 2022-04-26 19:53 | Observation (INO) ==
[2022-04-26] MEDS ORDERED: SODIUM CHLORIDE 0.9% 1,000 ML IV STA (20:23)
[2022-04-26 20:30] LABS: Basophils % 0.3 % (0.0-0.8); Eosinophils % 0.3 % (0.00-10.9); Hematocrit 32.2 VOL% (42.0-52.0); Hemoglobin 11.1 GM/DL (14.0-18.0); Immature Granulocytes Absolute 0.13 #; Lymphocytes # 0.6 10*3/uL (1.4-4.0); Lymphocytes % 9.8 % (21.2-54.2); Mean Corpuscular HGB Conc 34.5 GM/DL (32-36); Mean Corpuscular Volume 104.9 FL (87-102); Mean Platelet Volume 9.9 FL (9.6-12.0); Monocytes # 0.5 10*3/uL (0.11-0.8); Monocytes % 7.6 % (1.7-12.7); NRBC # 0.02 10*3/uL; Platelet Count 184 T/CUMM (130-400); Red Blood Count 3.07 MC/CUMM (3.8-5.5); Red Cell Distribution Width 13.9 % (9.3-17.3); White Blood Count 6.4 T/CUMM (4-12)
[2022-04-26 20:47] LABS: Albumin 3.3 G/DL (3.4-5.0); Bilirubin,Total 0.4 MG/DL (0.20-1.00); Calcium 9.5 MG/DL (8.5-10.1); Osmolality,Calculated 277.8 MOS/KG (273-304); Potassium 4.4 MMOL/L (3.5-5.1); Total Protein 8.2 G/DL (6.4-8.2)
[2022-04-26 21:18] LABS: Bacteria,Urine Occasional /HPF (Few); Hyaline Casts,Urine 1 /LPF (0-3); Mucus,Urine Occasional /LPF (Occasional); RBC,Urine 14 /HPF (0-4); Squamous Epithelial Cell,Urine Occasional /HPF (0-10)
[2022-04-26 21:20] LABS: Bilirubin,Urine Negative (Negative); Blood, Urine Trace mg/dL (Negative); Glucose,Urine (UA) Negative (Negative); Ketones,Urine Negative (Negative); Nitrite,Urine Negative (Negative); Protein,Urine Trace mg/dL (Negative); Urine Appearance Clear (Clear); Urine Color Yellow (Yellow); Urine Specific Gravity 1.025 (1.001-1.035); Urine Urobilinogen 0.2 eU/dL (<2.0)
[2022-04-26] MEDS ORDERED: GLUCAGON 1 MG VIAL IM PRN (22:30)
[2022-04-26] MEDS ORDERED: DEXTROSE 10% 250 ML BAG IV PRN (22:30)
[2022-04-26] MEDS ORDERED: DOCUSATE SODIUM 100 MG CAPSULE PO PRN (22:31)
[2022-04-26] MEDS ORDERED: ONDANSETRON 4 MG/2 ML VIAL IV PRN (22:31)
[2022-04-26] MEDS ORDERED: SODIUM CHLORIDE 0.9% 1,000 ML IV SCH (23:00)
[2022-04-27] MEDS: ENOXAPARIN 40 MG/0.4 ML SYRINGE SUBCUT SCH ×2 (01:51→09:35)
[2022-04-27 04:51] LABS: Basophils % 0.1 % (0.0-0.8); Eosinophils % 0.6 % (0.00-10.9); Hematocrit 28.5 VOL% (42.0-52.0); Hemoglobin 9.9 GM/DL (14.0-18.0); Immature Granulocytes Absolute 0.14 #; Lymphocytes # 1.1 10*3/uL (1.4-4.0); Lymphocytes % 15.3 % (21.2-54.2); Mean Corpuscular HGB Conc 34.7 GM/DL (32-36); Mean Corpuscular Volume 104.4 FL (87-102); Mean Platelet Volume 10.4 FL (9.6-12.0); Monocytes # 0.9 10*3/uL (0.11-0.8); Monocytes % 12.6 % (1.7-12.7); Neutrophils % 69.4 % (38.7-73.9); Platelet Count 162 T/CUMM (130-400); Red Blood Count 2.73 MC/CUMM (3.8-5.5); Red Cell Distribution Width 13.9 % (9.3-17.3); White Blood Count 7.1 T/CUMM (4-12)
[2022-04-27 05:23] LABS: Folate 13.09 NG/ML (5.38-24.0)
[2022-04-27 05:25] LABS: Alanine Aminotransferase 21 U/L (16-61); Albumin 2.7 G/DL (3.4-5.0); Alkaline Phosphatase 56 U/L (45-117); Aspartate Amino Transferase 23 U/L (0-37); Bilirubin,Total < 0.39 MG/DL (0.20-1.00); Blood Urea Nitrogen 18 MG/DL (7-18); Calcium 8.7 MG/DL (8.5-10.1); Carbon Dioxide 21 MMOL/L (21-32); Chloride 104 MMOL/L (98-107); Glucose 106 MG/DL (74-106); Osmolality,Calculated 265.5 MOS/KG (273-304); Potassium 3.8 MMOL/L (3.5-5.1); Sodium 132 MMOL/L (136-145); Total Protein 7.3 G/DL (6.4-8.2)
[2022-04-27] MEDS: ALBUTEROL/IPRATROPIUM 3 ML NEB RESP TX SCH ×2 (07:10→11:31)
[2022-04-27] MEDS ORDERED: predniSONE 10 MG TABLET PO SCH (09:00)
[2022-04-27 12:55] VITALS: BP 100/52
== END 2022-04-27 13:43 | disposition home or self-care (01) ==
LOC: EDUNIT# → EDBD → N.EDINP 19:53 → N.ED 19:53 → N.5E 22:06 → N.TELES 22:23
PROVIDERS: ADMIT Internal Medicine; ATTEND Internal Medicine